=== PATIENT | male | born 1960 | race Caucasian/White ===

== ENCOUNTER 2016-07-16 17:16 | Emergency (ER) | payer BC ==
--- NOTE | 2016-07-16 20:17 | ED ---
Lower Extremity - HPI Summary HPI Summary: 56 M w/ PMH of lyme disease presents with bilateral knee pain for a week. He notices the pain in the back of the knee. He describes it as a muscle pulling sensation from the back of his thigh to his ankle. He says that it is worst when he is on his knees that he can barely stand up when he kneels. He denies any fever or history of gout. He says sometimes when he stands he feels that his knee cap is going to move out of place. He denies any locking or popping of his knee. He denies any trauma to the knees. He denies any swelling to his knees. He has been using ibuprofen for the pain. He is a smoker. He denies any recent travel, recent surgeries, family history of DVT, swelling in the calfs. - History of Current Complaint Chief Complaint: EDExtremityLower Stated Complaint: PAIN IN BOTH KNEES Time Seen by Provider: 07/16/16 19:55 Pain Intensity: 9 - Allergies/Home Medications Allergies/Adverse Reactions: Allergies Allergy/AdvReac Type Severity Reaction Status Date / Time No Known Allergies Allergy Verified 07/16/16 17:39 PMH/Surg Hx/FS Hx/Imm Hx Endocrine/Hematology History: Denies: Hx Diabetes, Hx Thyroid Disease Cardiovascular History: Reports: Hx Hypercholesterolemia, Hx Hypertension, Other Cardiovascular Problems/Disorders - history of "blacking out" Respiratory History: Reports: Hx Pneumonia Denies: Hx Asthma, Hx Chronic Obstructive Pulmonary Disease (COPD) GI History: Reports: Hx Diverticulosis, Other GI Disorders - colitis Denies: Hx Ulcer History: Denies: Hx Dialysis, Hx Renal Disease Sensory History: Reports: Hx Contacts or Glasses, Hx Deafness Opthamlomology History: Reports: Hx Contacts or Glasses Neurological History: Reports: Hx Headaches, Hx Migraine - Surgical History Surgery Procedure, Year, and Place: hernia repair more than 10 yrs ago. Hx Anesthesia Reactions: No Infectious Disease History: No Infectious Disease History: Reports: History Other Infectious Disease - Lyme's Dz Denies: Hx Hepatitis, Hx Human Immunodeficiency Virus (HIV), Traveled Outside the [place] in Last 30 Days - Family History Known Family History: Positive: Cardiac Disease, Other - no history of blood clots - Social History Alcohol Use: Occasionally Alcohol Amount: 2 Substance Use Type: Reports: None Smoking Status (MU): Heavy Every Day Tobacco Smoker Type: Cigarettes Amount Used/How Often: 1 PPD Review of Systems Negative: Fever Negative: Chest Pain Negative: Shortness Of Breath Positive: Myalgia - bilateral knee pain All Other Systems Reviewed And Are Negative: Yes Physical Exam Triage Information Reviewed: Yes Vital Signs On Initial Exam: Initial Vitals Temp Pulse Resp BP Pulse Ox 98.5 F 82 18 140/97 98 07/16/16 17:34 07/16/16 17:34 07/16/16 17:34 07/16/16 17:34 07/16/16 17:34 Vital Signs Reviewed: Yes Appearance: Positive: Well-Appearing Skin: Positive: Warm, Dry Head/Face: Positive: Normal Head/Face Inspection Eyes: Positive: Normal, Conjunctiva Clear ENT: Positive: Normal ENT inspection, Pharynx normal, TMs normal Respiratory/Lung Sounds: Positive: Clear to Auscultation, Breath Sounds Present Cardiovascular: Positive: Normal, RRR Musculoskeletal: Positive: Other - no calf tenderness, neg ballotment test, full ROM of knee with pain, no edema or erythema or warmth noted of knees, tenderness when move patella, good pulses, capillary refill <2 secs. Negative: Kaz Sign Left, Kaz Sign Right Diagnostics - Vital Signs Vital Signs Temp Pulse Resp BP Pulse Ox 07/16/16 19:08 98.5 F 67 18 139/85 97 07/16/16 18:15 99.2 F 77 16 139/97 96 07/16/16 17:34 98.5 F 82 18 140/97 98 - Laboratory Lab Statement: Any lab studies that have been ordered have been reviewed, and results considered in the medical decision making process. Lower Extremity Course/Dx - Course Course Of Treatment: 56 M presents with bilateral knee pain, pain is mostly located on the posteroir aspect of the knee and describes as pulling sensation, is nontender to posteroir asepct of knee but does have tenderness when move patella but no edema noted, does not appear to be a septic or gout joint as no erythema or edema noted, do not suspect DVT as only risk factor is smoking and neg homans sign and calf nontender and no erythema noted, xray normal except for foreign body in left leg, says that foreign body has been there for 4 years and is not tender over area and no open lesion present and can not feel through skin, advised to follow up with primary to discuss potenital removing foreign body and potential that could by lyme arthritis?, will try course of prednisone to see if improvement, patient agrees with plan - Diagnoses Differential Diagnosis/HQI/PQRI: Positive: Arthritis - lyme, DVT, Gout, Infection Provider Diagnoses: Bilateral knee pain Discharge - Discharge Plan Condition: Good Disposition: HOME Prescriptions: Methylprednisolone [Medrol Dosepak 4 MG*] 4 mg PO .SEE MANUEL INSTRUCTION #1 packet Patient Education Materials: Knee Pain (ED) Referrals: Isaias Gresham MD [Primary Care Provider] - Additional Instructions: Take steroid pack as prescribed Take Tylenol or ibuprofen every 6 hours as needed for pain Apply ice, rest, elevate Follow up with primary care physician within 5 days Return to ED if develop numbness, inability to move joint, or any new or worsening symptoms
--- NOTE | 2016-07-16 21:11 | RAD ---
INDICATION: Bilateral knee pain. TECHNIQUE: 4 views of both knees were obtained. FINDINGS: The bones are normal alignment. No joint effusion or fracture is seen. There is a small metallic foreign body which projects overlying the anterior aspect of the distal left quadriceps tendon. This is linear in shape and measures 3 mm in length. Joint spaces appear maintained. No significant arthritic change is seen IMPRESSION: THERE IS A SMALL METALLIC FOREIGN BODY IN THE SOFT TISSUES IN THE ANTERIOR LEFT KNEE.
[2016-07-16 21:55] VITALS: BP 149/92
== END 2016-07-16 21:52 | disposition home or self-care (01) ==
LOC: ED 17:16
DX: M25.562 Pain in left knee (principal); M25.561 Pain in right knee; F17.210 Nicotine dependence, cigarettes, uncomplicated; M79.5 Residual foreign body in soft tissue
CPT/HCPCS: 99282

== ENCOUNTER 2016-10-14 08:00 | Inpatient (IN) | payer BC ==
[2016-10-14] MEDS ORDERED: Aspirin Low Dose CHEW TAB* 81 MG PO ONE (08:07)
[2016-10-14] MEDS ORDERED: Nitroglycerin TAB 0.4 MG* 0.4 MG TAB SL ONE (08:15)
[2016-10-14 08:28] LABS: Hematocrit 47 % (42-52); Hemoglobin 15.4 g/dl (14.0-18.0); Mean Corpuscular HGB Conc 33 g/dl (31-36); Mean Corpuscular Hemoglobin 30 pg (27-31); Mean Corpuscular Volume 91 fL (80-94); Mean Platelet Volume 9 um3 (7.4-10.4); Red Blood Count 5.11 10^6/ul (4.0-5.4); Red Cell Distribution Width 14 % (10.5-15); White Blood Count 8.6 10^3/ul (3.5-10.8)
--- NOTE | 2016-10-14 08:35 | RAD ---
Indication: Chest pain. Cardiovascular and respiratory disease. Comparison: May 10, [address] Technique: Upright AP 0815 hours Report: Clear lungs and pleural spaces. Negative for pneumothorax. The heart, pulmonary vasculature, and mediastinal contours are unremarkable. Unremarkable osseous structures and soft tissue contours. IMPRESSION: No evidence for acute intrathoracic disease.
[2016-10-14] MEDS ORDERED: Nitroglycerin 2% OINT* 1 GM PAK TOPICAL ONE (08:39)
[2016-10-14 08:46] LABS: Albumin 4.2 g/dL (3.2-5.2); BUN/Creatinine Ratio 16.3 (8-20); Calcium 9.5 mg/dL (8.6-10.3); EGFR African American 101.4 (>60); EGFR Non-African American 78.8 (>60); Globulin 2.8 g/dL (2-4); Total Bilirubin 0.6 mg/dL (0.2-1.0)
[2016-10-14 08:48] LABS: Troponin I 0.01 ng/mL (<0.04)
[2016-10-14 11:15] LABS: HDL Cholesterol 36.6 mg/dL
[2016-10-14 11:17] LABS: Troponin I 0.03 ng/mL (<0.04)
[2016-10-14] MEDS ORDERED: Acetaminophen TAB* 325 MG PO PRN (12:59)
[2016-10-14] MEDS ORDERED: Atorvastatin* 80 MG TAB PO ONE (21:00)
[2016-10-14] MEDS: Heparin VIAL(*) 5000 UNITS/ML VIAL (FIVE THOUSAND) SUBCUT SCH (21:19)
--- NOTE | 2016-10-15 00:33 | HP ---
HISTORY AND PHYSICAL: DATE OF ADMISSION: 10/14/16 CHIEF COMPLAINT: Chest pain. HISTORY OF PRESENT ILLNESS: The patient is a 56-year-old who presents with chief complaint of chest pain that started on Friday when he was walking down after doing a job and felt sudden onset of significant chest pain in his left side that went to his left arm and his left jaw. It was 9 to 10 out of 10 in severity. It was pressure like. He could not take a breath. He had no nausea and no palpitations, but he had cold sweats. He rested in his bed for a while and then it went away. The next day he felt better. He got up. He felt was may be the coffee he had the day before that caused the problems, so he did not have it. He then mowed the lawn and put down chips around the trees and started having the same exact symptoms. Again, he rested and again the pain went away. However it recurred this morning, so he came to the ER for further evaluation. He is currently taking no medications. He apparently has a past medical history significant for hypertension, hyperlipidemia, tobacco abuse, colitis and admitted to [facility] 5 years ago. ALLERGIES: He has no known drug allergies. FAMILY HISTORY: Mother at 60. She had diabetes, heart problems. Father in his 70s of an [place] and had lung cancer. SOCIAL HISTORY: He still smokes one-half pack a day for years. Two to three beers a day. No recreational drug use. He is . He has 4 children. His Laura is his healthcare proxy. 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 REVIEW OF SYSTEMS: A 14-point review of systems was completed with the patient. All pertinent positives and negatives are in the history of present illness, otherwise it is negative. PHYSICAL EXAMINATION GENERAL: Pleasant gentleman, lying in bed, in no acute distress. VITAL SIGNS: Temperature 97.9 degrees, heart rate 60 beats per minute, respiratory rate 16 breaths per minute, pulse ox 98%, blood pressure 132/80. HEENT: Normocephalic, atraumatic. Pupils are equal, round, and reactive to light. Moist mucous membranes. NECK: Supple. No JVD, bruits, palpable thyroid, or lymphadenopathy. CHEST: Clear to auscultation and percussion bilaterally. CARDIOVASCULAR: S1, S2 appreciated. Regular rate and rhythm. No murmurs, gallops or rubs. ABDOMEN: Positive bowel sounds in all 4 quadrants. Soft, nontender, nondistended. No hepatosplenomegaly. EXTREMITIES: No cyanosis, clubbing, or edema. +2 peripheral pulse bilaterally. NEUROLOGIC: Alert and oriented x3. Moves all extremities. SKIN: No rashes or abnormalities. LABORATORY DATA/DIAGNOSTIC STUDIES: White count 8.6, hemoglobin 15.4, hematocrit 47, platelets are 234. Sodium is 136, potassium 4.0, chloride 106, CO2 of 25, BUN 16, creatinine 0.98, glucose 105. Troponin 0.01, 0.03, and 0.03. D-dimer is less than 200. Chest x-ray was interpreted by Radiology as no evidence for acute intrathoracic disease. EKG shows normal sinus rhythm at 75 beats per minute. Normal axis. Minimal ST elevations. ASSESSMENT AND PLAN: 1. Chest pain. Troponins negative. EKG not particularly impressive but his story is. We will admit patient who has ruled out for TX. Get stress echo in the morning. I have already discussed this situation with Cardiology, as my guess is the patient could have a negative stress test, but it is likely he still has significant coronary disease. They will evaluate and let me know tomorrow. 2. Tobacco abuse. The patient declines normal nicotine replacement. We will make it available if he needs it. 3. Hypertension. Apparently he has a history, but his blood pressure has been fine here. We will monitor. 4. Hyperlipidemia. Cholesterol is 286, LDL 209, HDL 36. We will start on Lipitor. 5. FEN. NPO after midnight. 6. DVT prophylaxis. Heparin subcu. 7. The patient is a full code. TIME SPENT: Over 75 minutes was spent on this H and P, more than 40 minutes of which was spent in direct [id number] contact with the patient in evaluation, physical exam, counseling, and coordination of care. CC: Dr. Gresham* [id number]/[facility] #: [id number] MTDLeandro
[2016-10-15] MEDS: Heparin VIAL(*) 5000 UNITS/ML VIAL (FIVE THOUSAND) SUBCUT SCH ×3 (05:52→21:20)
[2016-10-15] MEDS: Aspirin Low Dose CHEW TAB* 81 MG PO SCH (08:56)
[2016-10-15] MEDS ORDERED: fentaNYL* 50 MCG/ML 2 ML VIAL (100 MCG VIAL) ONE (10:47)
[2016-10-15] MEDS ORDERED: Midazolam* 1 MG/ML 5 ML VIAL (5 MG) ONE (10:48)
[2016-10-15] MEDS ORDERED: Heparin 2 UNITS/ML IVPREMIX* 3,000 ML IV ONE (10:48)
[2016-10-15] MEDS ORDERED: Iohexol 350 (CONTRAST) 200 ML MDV IV ONE (10:48)
[2016-10-15] MEDS ORDERED: Lidocaine 1% INJ* 10 MG/ML 30 ML SDV ONE ×2 (10:48→11:12)
[2016-10-15] MEDS ORDERED: Heparin 2 UNITS/ML IVPREMIX* 1,000 ML IV ONE (11:11)
[2016-10-15] MEDS ORDERED: Ticagrelor* 90 MG TAB PO ONE (11:44)
[2016-10-15] MEDS ORDERED: nitroGLYCERIN DRIP* 250 ML ONE (11:45)
[2016-10-15] MEDS ORDERED: Nitroglycerin TAB 0.4 MG* 0.4 MG TAB SL PRN (12:19)
[2016-10-15] MEDS ORDERED: Docusate CAP* 100 MG PO PRN (12:19)
[2016-10-15] MEDS ORDERED: Zolpidem TAB* 5 MG PO PRN (12:19)
[2016-10-15] MEDS ORDERED: Ondansetron INJ* 2 MG/ML VIAL IV PRN (12:19)
[2016-10-15] MEDS ORDERED: Acetaminophen TAB* 325 MG PO PRN (12:19)
[2016-10-15] MEDS ORDERED: fentaNYL* 50 MCG/ML 2 ML VIAL (100 MCG VIAL) IV PRN (12:19)
[2016-10-15] MEDS ORDERED: NS 0.9% 1000 ML* 1,000 ML IV SCH (12:30)
[2016-10-15] MEDS ORDERED: Nicotine Inhaler* 10 MG AMP INH PRN (13:47)
--- NOTE | 2016-10-15 13:49 | PN ---
Subjective Date of Service: 10/15/16 Interval History: Pt was seen after cardiac cath. Offers no complaints. Had CP on treadmill , during stress test. Objective Active Medications: Acetaminophen (Tylenol Tab*) 650 mg PO Q4H PRN PRN Reason: HEADACHE/PAIN Aspirin (Aspirin Low Dose Tab*) 81 mg PO DAILY [facility] Last Admin: 10/15/16 08:56 Dose: 81 mg Atorvastatin Calcium (Lipitor*) 80 mg PO 2100 [facility] Stop: 10/21/16 20:59 Docusate Sodium (Colace Cap*) 100 mg PO DAILY PRN PRN Reason: CONSTIPATION Fentanyl Citrate (Fentanyl*) 25 mcg IV Q2H PRN PRN Reason: PAIN Heparin Sodium (Porcine) (Heparin Vial(*)) 5,000 units SUBCUT Q8HR [facility] Last Admin: 10/15/16 05:52 Dose: Not Given Nitroglycerin (Nitroglycerin Tab 0.4 Mg*) 0.4 mg SL Q5M PRN PRN Reason: ANGINA Ondansetron HCl (Zofran Inj*) 4 mg IV Q4H PRN PRN Reason: NAUSEA Oxycodone/Acetaminophen (Percocet 5/325 Tab*) 1 tab PO Q6H PRN PRN Reason: PAIN Ticagrelor (Brilinta*) 90 mg PO BID [facility] Zolpidem Tartrate (Ambien Tab*) 5 mg PO BEDTIME PRN PRN Reason: INSOMNIA Vital Signs 10/14/16 10/14/16 10/14/16 15:17 15:52 19:43 Temperature 98.2 F 98.2 F Pulse Rate 61 60 Respiratory 18 18 Rate Blood Pressure 124/78 126/83 (mmHg) O2 Sat by Pulse 95 94 Oximetry 10/15/16 10/15/16 10/15/16 00:07 04:14 07:55 Temperature 97.5 F 97.6 F 97.5 F Pulse Rate 54 67 57 Respiratory 16 16 16 Rate Blood Pressure 128/87 128/82 128/84 (mmHg) O2 Sat by Pulse 95 93 96 Oximetry Oxygen Devices in Use Now: None Appearance: 56 yo M in nAd, aAOx3 Eyes: No Scleral Icterus, PERRLA Ears/Nose/Mouth/Throat: NL Teeth, Lips, Gums, Mucous Membranes Moist Neck: NL Appearance and Movements; NL JVP, Trachea Midline Respiratory: Symmetrical Chest Expansion and Respiratory Effort, Clear to Auscultation Cardiovascular: NL Sounds; No Murmurs; No JVD, RRR Abdominal: NL Sounds; No Tenderness; No Distention, No Hepatosplenomegaly Lymphatic: No Cervical Adenopathy Extremities: No Edema, No Clubbing, Cyanosis Skin: No Rash or Ulcers, No Nodules or Sclerosis, - - r groin with pressure dressing in place Neurological: Alert and Oriented x 3, NL Muscle Strength and Tone Result Diagrams: 10/14/16 08:10 10/14/16 08:10 Assess/Plan/Problems-Billing Assessment: 56 yo M with h/o smoking presents with exertional angina, s/p cath , stent to LAD - Patient Problems (1) Exercise-induced angina Comment: pt had CP on treadmill cath + stent in LAD on 10/15/[address] Murry cont ANGIE/Renan (2) Smoking Comment: nicotine inhaler ordered (3) Dyslipidemia Comment: LDL>200, Lipitor started (4) DVT prophylaxis Comment: heparin sc Status and Disposition: OBV will be changed to inpatient
--- NOTE | 2016-10-15 15:21 | CONS ---
CARDIOLOGY CONSULTATION: DATE OF CONSULT: 10/15/16 INDICATION FOR CONSULTATION: Chest pain, abnormal stress test. HISTORY OF PRESENT ILLNESS: The patient is a 56-year-old gentleman with a history of smoking who came to the emergency room because of chest pain. The patient states that over the weekend he had multiple episodes of chest pain, he describes that as a crushing pain in the center of the chest radiating up to his jaw. At one point, he rated it as a 9/10 in severity. Ultimately, he came to the emergency room. In the emergency room, his initial EKG showed normal sinus rhythm with nonspecific T-wave abnormalities. The patient was admitted to the hospital. His initial 3 troponins were unremarkable. This morning, the patient underwent an exercise stress echocardiogram. His baseline echocardiogram showed normal LV size and systolic function. The patient exercised for 5 minutes and 22 seconds. He had crushing chest pain radiating into his arm and jaw. He had no blatant EKG changes. However, his echocardiogram showed severe hypokinesis to his distal anterior wall and apex consistent with possible LAD stenosis. The patient's chest pain resolved with rest. PAST MEDICAL HISTORY: Unremarkable. OUTPATIENT MEDICATIONS: None. HOSPITALIZATIONS: None. ALLERGIES: None. FAMILY HISTORY: Mother at 60 of diabetes and heart troubles. Father in his 70s of a myocardial infarction. SOCIAL HISTORY: He does smoke half a pack of cigarettes a day, 1 to 2 beers a day. He is . He has 4 children. 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 REVIEW OF SYSTEMS: Unremarkable. PHYSICAL EXAM: Height is 5 feet 9 inches, weight is 181 pounds, temperature is 97.5, heart rate is 66, blood pressure 128/84, oxygen saturation 96% on room air. Sclerae anicteric. Oropharynx is pink without erythema. Carotids are 2+ without bruits. JVD is normal. Thyroid is normal. Cardiac Exam: S1, S2 without any murmurs, rubs or gallops. Lungs are clear to auscultation. Extremities showed no edema. He has 2+ pulses throughout. The patient is awake and alert and oriented. He moves all 4 extremities equally. DIAGNOSTIC STUDIES/LAB DATA: CBC within normal limits. Chemistries within normal limits. Total cholesterol 186, LDL cholesterol 209. IMPRESSION: This is a 56-year-old gentleman with a history of smoking who is admitted to the hospital with classic anginal type symptoms. The patient underwent a stress test which showed a large area of ischemia to his distal anterior wall and apex. The patient is already on an aspirin a day. The patient will undergo cardiac catheterization. He will be started on statin therapy and beta blockers. I will see the patient in followup as an outpatient. [id number]/[facility] #: [id number] MTDD
[2016-10-15] MEDS: oxyCODONE/Acetamin 5/325 MG* TAB PO PRN ×2 (16:15→23:28)
[2016-10-15] MEDS ORDERED: Atorvastatin* 80 MG TAB PO SCH (21:00)
[2016-10-15] MEDS: Ticagrelor* 90 MG TAB PO SCH (21:20)
--- NOTE | 2016-10-15 23:18 | CATH ---
CARDIAC CATHETERIZATION REPORT: DATE OF STUDY: 10/15/16 - ROOM #ICU-03 PROCEDURE: Cardiac catheterization including left ventriculogram, left heart catheterization, coronary angiography. INDICATION: Acute coronary syndrome, abnormal stress test. HISTORY: The patient is a 56-year-old gentleman with a history of smoking, who was admitted to the hospital with typical anginal type symptoms. The patient had just undergone a stress echocardiogram, which was markedly positive for ischemia to his anterior wall. Cardiac catheterization was recommended. DESCRIPTION OF PROCEDURE: The patient was brought to the cardiac catheterization lab in a fasting state. Informed consent had been obtained prior to the procedure. All labs were reviewed. The patient was placed supine on the catheterization table. Both femoral areas were cleaned and draped in the usual fashion. 1% lidocaine was used for local anesthesia. The right femoral artery was entered by a modified Seldinger technique and a 6-Maltese sheath introducer was placed. The patient underwent left ventriculogram, coronary angiography using a 6-Maltese pigtail catheter, 6-Maltese JL4 catheter, 6 -Maltese JR4 catheter. At the end of the procedure, the patient went on to angioplasty and stenting of his left anterior descending artery. Please see Dr. Murry's note for those details. FINDINGS: HEMODYNAMICS: Central aortic pressure 120/76 with a mean of 94. Left ventricular pressure of 120/6 with an end-diastolic pressure of 9. LEFT VENTRICULOGRAM: Left ventricle is normal in size and systolic function. Estimated ejection fraction is 60%. There are no focal wall motion abnormalities. There is no mitral regurgitation. Aortic valve and ascending aorta are normal. CORONARY ARTERIES: Left main: The left main was normal in size. It trifurcated into the LAD, ramus artery and circumflex artery. There was no evidence of stenosis. Left anterior descending artery: The LAD was normal in size. It gave off 2 diagonal vessels. There was a 90% stenosis of the proximal LAD. The remainder of the vessel was without disease. The diagonal vessels were small vessels. Ramus artery: The ramus artery was a moderate size vessel without disease. Left circumflex artery: The circumflex artery was normal in size. It gave off one obtuse marginal branch. There was no evidence of stenosis. Right coronary artery: The RCA was a large dominant vessel. It gave off the PDA and large posterolateral branch. There was no evidence of stenosis. IMPRESSION: 1. Normal LV size and systolic function. 2. 90% stenosis of the proximal left anterior descending artery. RECOMMENDATION: The patient will undergo angioplasty and stenting of his LAD. [id number]/[facility] #: [id number] [facility] CENTERLeandro
--- NOTE | 2016-10-16 00:08 | CATH ---
INTERVENTIONAL REPORT: DATE OF PROCEDURE: 10/15/16 - ROOM #ICU-03 INDICATION FOR PROCEDURE: Asked by Dr. Joshua who performed intervention into critical 90% mid LAD lesion with the patient with significant positive stress test by echocardiography showing segmental wall motion development with exercise. PROCEDURE: Primary stenting of the mid LAD with placement of a 3.5 x 16 mm long Synergy stent, post dilated to 3.6 to 3.7 mm and closure of arterial site with a Mynx closure device. DESCRIPTION OF PROCEDURE: The patient was already prepped and draped by Dr. Joshua, who performed the diagnostic catheterization and will report it in a separate report. The patient already had an existing 6-Angolan sheath in place. I met with the patient in the logging rafter laborer and explained to him the procedure we are going to do. He understood that and understood the risks and benefits. He wished to proceed. Guiding views were obtained utilizing a 6-Angolan VL 3.5 curved left coronary guide catheter. The patient received Brilinta 180 mg orally and an Angiomax bolus and Angiomax drip was started. An 0.014 All Star wire was advanced down the left anterior descending artery and primary stenting was performed utilizing the 3.5 x 16 mm long Synergy stent. Post deployment dilatations were made utilizing a 3.5 x 8 mm long NC Emerge balloon dilated to high pressures to obtain 3.6 to 3.7 mm. Following this, the artery was assessed in two views. RESULTS: Successful reduction of critical 90% stenosis with residual stenosis of 5%, LINETTE-3 flow, no dissection seen. Just past the point of the stent, is an area of 20% narrowing. Of note, proximal to the stent placement is an area of prestenotic dilatation that was seen. The patient should be maintained on dual antiplatelet therapy for a minimum of 1 year's time and aspirin for life. This was discussed with Dr. Magdaleno Joshua, who is the patient's primary speeder worker. The patient is on high-dose atorvastatin therapy as well. Postprocedure wound followup will be through Dr. Joshua, his primary speeder worker, as well. CC: Dr. Magdaleno Joshua; Dr. Isaias Gresham * [id number]/[facility] #: [id number] MTDD
[2016-10-16 06:15] LABS: Hematocrit 46 % (42-52); Hemoglobin 15.3 g/dl (14.0-18.0); Mean Corpuscular HGB Conc 34 g/dl (31-36); Mean Corpuscular Hemoglobin 31 pg (27-31); Mean Corpuscular Volume 91 fL (80-94); Mean Platelet Volume 9 um3 (7.4-10.4); Red Blood Count 5.02 10^6/ul (4.0-5.4); Red Cell Distribution Width 14 % (10.5-15); White Blood Count 10.5 10^3/ul (3.5-10.8)
[2016-10-16 06:34] LABS: BUN/Creatinine Ratio 25.3 (8-20); Calcium 9.4 mg/dL (8.6-10.3); EGFR African American 105.1 (>60); EGFR Non-African American 81.7 (>60); HDL Cholesterol 30.7 mg/dL
[2016-10-16] MEDS: Heparin VIAL(*) 5000 UNITS/ML VIAL (FIVE THOUSAND) SUBCUT SCH ×2 (06:40→14:06)
--- NOTE | 2016-10-16 08:02 | PN ---
Subjective Date of Service: 10/16/16 Interval History: Pt feels well, no more CP. HR down to 40's when asleep Objective Active Medications: Acetaminophen (Tylenol Tab*) 650 mg PO Q4H PRN PRN Reason: HEADACHE/PAIN Aspirin (Aspirin Low Dose Tab*) 81 mg PO DAILY [facility] Last Admin: 10/15/16 08:56 Dose: 81 mg Atorvastatin Calcium (Lipitor*) 80 mg PO 2100 [facility] Stop: 10/21/16 20:59 Last Admin: 10/15/16 21:20 Dose: 80 mg Docusate Sodium (Colace Cap*) 100 mg PO DAILY PRN PRN Reason: CONSTIPATION Heparin Sodium (Porcine) (Heparin Vial(*)) 5,000 units SUBCUT Q8HR [facility] Last Admin: 10/16/16 06:40 Dose: 5,000 units Nicotine (Nicotine Inhaler*) 10 mg INH Q2H PRN PRN Reason: CRAVING Nitroglycerin (Nitroglycerin Tab 0.4 Mg*) 0.4 mg SL Q5M PRN PRN Reason: ANGINA Ondansetron HCl (Zofran Inj*) 4 mg IV Q4H PRN PRN Reason: NAUSEA Oxycodone/Acetaminophen (Percocet 5/325 Tab*) 1 tab PO Q6H PRN PRN Reason: PAIN Last Admin: 10/15/16 23:28 Dose: 1 tab Ticagrelor (Brilinta*) 90 mg PO BID [facility] Last Admin: 10/15/16 21:20 Dose: 90 mg Zolpidem Tartrate (Ambien Tab*) 5 mg PO BEDTIME PRN PRN Reason: INSOMNIA Last Admin: 10/15/16 21:35 Dose: 5 mg Vital Signs 10/15/16 10/15/16 10/15/16 14:00 14:15 14:30 Temperature Pulse Rate 56 69 79 Respiratory 13 15 16 Rate Blood Pressure 155/93 129/99 142/94 (mmHg) O2 Sat by Pulse 99 98 98 Oximetry 10/15/16 10/15/16 10/15/16 14:45 15:00 15:15 Temperature Pulse Rate 80 69 64 Respiratory 14 12 11 Rate Blood Pressure 128/94 123/89 130/89 (mmHg) O2 Sat by Pulse 99 98 99 Oximetry 10/15/16 10/15/16 10/15/16 15:30 15:45 16:00 Temperature 97.8 F Pulse Rate 67 65 67 Respiratory 11 11 12 Rate Blood Pressure 130/75 119/98 122/81 (mmHg) O2 Sat by Pulse 99 99 98 Oximetry 10/15/16 10/15/16 10/15/16 16:15 16:30 16:45 Temperature Pulse Rate 83 69 63 Respiratory 13 14 15 Rate Blood Pressure 141/82 138/82 130/73 (mmHg) O2 Sat by Pulse 97 98 98 Oximetry 10/15/16 10/15/16 10/15/16 17:00 17:15 17:30 Temperature Pulse Rate 62 62 61 Respiratory 14 15 13 Rate Blood Pressure 138/76 130/81 118/91 (mmHg) O2 Sat by Pulse 97 97 97 Oximetry 10/15/16 10/15/16 10/15/16 17:45 18:00 18:15 Temperature Pulse Rate 60 74 65 Respiratory 13 15 17 Rate Blood Pressure 113/79 127/88 123/74 (mmHg) O2 Sat by Pulse 96 96 96 Oximetry 10/15/16 10/15/16 10/15/16 18:30 18:45 19:00 Temperature Pulse Rate 61 71 64 Respiratory 16 13 18 Rate Blood Pressure 117/71 138/123 128/76 (mmHg) O2 Sat by Pulse 97 95 96 Oximetry 10/15/16 10/15/16 10/15/16 19:15 19:30 19:41 Temperature Pulse Rate 65 64 Respiratory 14 15 18 Rate Blood Pressure 123/78 119/80 (mmHg) O2 Sat by Pulse 96 98 Oximetry 10/15/16 10/15/16 10/15/16 19:45 20:00 20:15 Temperature 97.5 F Pulse Rate 67 57 59 Respiratory 16 18 16 Rate Blood Pressure 131/76 115/77 127/76 (mmHg) O2 Sat by Pulse 96 96 95 Oximetry 10/15/16 10/15/16 10/15/16 20:30 20:45 21:00 Temperature Pulse Rate 57 53 62 Respiratory 14 16 18 Rate Blood Pressure 121/79 115/79 155/81 (mmHg) O2 Sat by Pulse 96 96 97 Oximetry 10/15/16 10/15/16 10/15/16 21:30 21:45 22:00 Temperature Pulse Rate 59 71 62 Respiratory 19 25 17 Rate Blood Pressure 135/84 143/75 132/85 (mmHg) O2 Sat by Pulse 95 97 95 Oximetry 10/15/16 10/15/16 10/15/16 22:15 22:30 22:36 Temperature Pulse Rate 60 58 59 Respiratory 13 12 13 Rate Blood Pressure 128/79 119/81 (mmHg) O2 Sat by Pulse 94 95 95 Oximetry 10/15/16 10/15/16 10/15/16 22:45 23:00 23:15 Temperature Pulse Rate 59 71 57 Respiratory 11 18 11 Rate Blood Pressure 111/74 141/81 132/76 (mmHg) O2 Sat by Pulse 96 96 97 Oximetry 10/15/16 10/15/16 10/15/16 23:28 23:30 23:31 Temperature 97.7 F Pulse Rate 59 Respiratory 16 16 Rate Blood Pressure 135/84 (mmHg) O2 Sat by Pulse 96 Oximetry 10/15/16 10/16/16 10/16/16 23:45 00:00 00:01 Temperature Pulse Rate 57 55 56 Respiratory 11 11 9 Rate Blood Pressure 115/73 125/79 (mmHg) O2 Sat by Pulse 97 96 96 Oximetry 10/16/16 10/16/16 10/16/16 00:15 00:30 00:45 Temperature Pulse Rate 56 56 56 Respiratory 13 11 13 Rate Blood Pressure 117/74 112/82 109/81 (mmHg) O2 Sat by Pulse 96 98 96 Oximetry 10/16/16 10/16/16 10/16/16 01:00 01:15 01:30 Temperature Pulse Rate 55 57 53 Respiratory 14 7 11 Rate Blood Pressure 118/75 100/75 115/70 (mmHg) O2 Sat by Pulse 97 96 96 Oximetry 10/16/16 10/16/16 10/16/16 01:45 02:00 02:15 Temperature Pulse Rate 55 54 53 Respiratory 14 11 12 Rate Blood Pressure 110/73 98/75 119/75 (mmHg) O2 Sat by Pulse 96 96 97 Oximetry 10/16/16 10/16/16 10/16/16 02:30 02:45 03:00 Temperature Pulse Rate 51 54 52 Respiratory 11 15 12 Rate Blood Pressure 103/71 115/79 122/70 (mmHg) O2 Sat by Pulse 96 96 95 Oximetry 10/16/16 10/16/16 10/16/16 03:15 03:30 03:45 Temperature Pulse Rate 53 51 55 Respiratory 10 10 13 Rate Blood Pressure 125/83 109/76 132/80 (mmHg) O2 Sat by Pulse 96 95 96 Oximetry 10/16/16 10/16/16 10/16/16 04:00 04:15 04:30 Temperature 98.7 F Pulse Rate 55 52 51 Respiratory 10 12 11 Rate Blood Pressure 127/78 127/79 134/80 (mmHg) O2 Sat by Pulse 96 95 97 Oximetry 10/16/16 10/16/16 10/16/16 04:45 05:00 05:15 Temperature Pulse Rate 52 52 63 Respiratory 12 10 19 Rate Blood Pressure 116/82 116/86 127/80 (mmHg) O2 Sat by Pulse 94 96 96 Oximetry 10/16/16 10/16/16 10/16/16 05:30 05:45 06:00 Temperature Pulse Rate 56 53 52 Respiratory 16 11 12 Rate Blood Pressure 118/88 116/70 129/82 (mmHg) O2 Sat by Pulse 95 95 96 Oximetry 10/16/16 10/16/16 06:15 06:30 Temperature Pulse Rate 52 51 Respiratory 12 10 Rate Blood Pressure 141/96 121/86 (mmHg) O2 Sat by Pulse 97 97 Oximetry Oxygen Devices in Use Now: Nasal Cannula - at 2L, 02 sat 96% Appearance: 56 yo M in nAd, aAOx3 Eyes: No Scleral Icterus, PERRLA Ears/Nose/Mouth/Throat: NL Teeth, Lips, Gums, Mucous Membranes Moist Neck: NL Appearance and Movements; NL JVP, Trachea Midline Respiratory: Symmetrical Chest Expansion and Respiratory Effort, Clear to Auscultation Cardiovascular: NL Sounds; No Murmurs; No JVD, No Edema Abdominal: NL Sounds; No Tenderness; No Distention, No Hepatosplenomegaly Lymphatic: No Cervical Adenopathy Extremities: No Edema, No Clubbing, Cyanosis Skin: No Rash or Ulcers, No Nodules or Sclerosis, - - R groin puncture site area , tender to palpation, no significant hmetoma noted Neurological: Alert and Oriented x 3, NL Muscle Strength and Tone Result Diagrams: 10/16/16 06:00 10/16/16 06:00 Assess/Plan/Problems-Billing Assessment: 56 yo M with h/o smoking presents with exertional angina, s/p cath , stent to LAD - Patient Problems (1) Exercise-induced angina Comment: pt had CP on treadmill cath + stent in LAD on 10/15/[address] Murry cont ASA/Brilinta Ambulate today, then d/c home in PM no beta blockers due to bradycardia (2) Smoking Comment: nicotine inhaler ordered Counseled x 3 min on 10/16/16 (3) Dyslipidemia Comment: LDL>200, Lipitor started (4) DVT prophylaxis Comment: heparin sc Status and Disposition: inpatient, d/c planned for PM
[2016-10-16] MEDS: Aspirin Low Dose CHEW TAB* 81 MG PO SCH (08:36)
[2016-10-16] MEDS: Ticagrelor* 90 MG TAB PO SCH (08:37)
--- NOTE | 2016-10-16 12:18 | PN ---
Subjective Date of Service: 10/16/16 - CC: SOB Interval History: The patient was SOB lying flat yesterday, better today and walking well. Groin is very sore. No recurrence of CP, neck or arm pain. Medications Active Medications: Acetaminophen (Tylenol Tab*) 650 mg PO Q4H PRN PRN Reason: HEADACHE/PAIN Aspirin (Aspirin Low Dose Tab*) 81 mg PO DAILY [facility]PLAC[facility] BY [facility] Last Admin: 10/16/16 08:36 Dose: 81 mg Atorvastatin Calcium (Lipitor*) 80 mg PO 2100 [facility]PL[facility] Stop: 10/21/16 20:59 Last Admin: 10/15/16 21:20 Dose: 80 mg Docusate Sodium (Colace Cap*) 100 mg PO DAILY PRN PRN Reason: CONSTIPATION Heparin Sodium (Porcine) (Heparin Vial(*)) 5,000 units SUBCUT Q8HR [facility]PLACED BY [facility] Last Admin: 10/16/16 06:40 Dose: 5,000 units Lisinopril (Prinivil Tab*) 2.5 mg PO DAILY [facility]PLAC[facility] BY [facility] Nicotine (Nicotine Inhaler*) 10 mg INH Q2H PRN PRN Reason: CRAVING Nitroglycerin (Nitroglycerin Tab 0.4 Mg*) 0.4 mg SL Q5M PRN PRN Reason: ANGINA Ondansetron HCl (Zofran Inj*) 4 mg IV Q4H PRN PRN Reason: NAUSEA Oxycodone/Acetaminophen (Percocet 5/325 Tab*) 1 tab PO Q6H PRN PRN Reason: PAIN Last Admin: 10/15/16 23:28 Dose: 1 tab Ticagrelor (Brilinta*) 90 mg PO BID [facility]PL[facility] Last Admin: 10/16/16 08:37 Dose: 90 mg Zolpidem Tartrate (Ambien Tab*) 5 mg PO BEDTIME PRN PRN Reason: INSOMNIA Last Admin: 10/15/16 21:35 Dose: 5 mg Objective Vital Signs: Temp Pulse Resp BP Pulse Ox 98.8 F 69 16 136/77 92 10/16/16 08:00 10/16/16 12:06 10/16/16 12:00 10/16/16 12:06 10/16/16 12:06 Oxygen Devices in Use Now: None - at 2L, 02 sat 96% Appearance: Middleaged male lying at 20 degrees, appears anxious but in no medical distress. Eyes: No Scleral Icterus, PERRLA Ears/Nose/Mouth/Throat: Clear Oropharnyx, Mucous Membranes Moist Neck: NL Appearance and Movements; NL JVP, Trachea Midline, No Thyroid Enlargement, Masses Respiratory: Symmetrical Chest Expansion and Respiratory Effort, Clear to Auscultation Cardiovascular: NL Sounds; No Murmurs; No JVD, RRR Abdominal: NL Sounds; No Tenderness; No Distention, No Hepatosplenomegaly Extremities: No Edema - femoral access site R groin very tender, but no hematoma , no ecchymosis, 2+ PTP left, 1+PTP right. Skin: No Rash or Ulcers Neurological: Alert and Oriented x 3, NL Muscle Strength and Tone Lines/Tubes/Other Access: Clean, Dry and Intact Peripheral IV Laboratory Results: 10/16/16 06:00 10/16/16 06:00 Total Bilirubin 0.60 mg/dL (0.2-1.0) 10/14/16 08:10 AST 14 U/L (13-39) 10/14/16 08:10 ALT 21 U/L (7-52) 10/14/16 08:10 Alkaline Phosphatase 52 U/L (34-104) 10/14/16 08:10 Total Protein 7.0 g/dL (6.4-8.9) 10/14/16 08:10 Albumin 4.2 g/dL (3.2-5.2) 10/14/16 08:10 Globulin 2.8 g/dL (2-4) 10/14/16 08:10 Albumin/Globulin Ratio 1.5 (1-3) 10/14/16 08:10 Triglycerides 183 mg/dL 10/16/16 06:00 Cholesterol 265 mg/dL 10/16/16 06:00 LDL Cholesterol 198 mg/dL 10/16/16 06:00 HDL Cholesterol 30.7 mg/dL 10/16/16 06:00 Diagnostic Imaging: Cath: 90% LAD lesion to CAR, other C's w/o disease. Assessment/Plan 56 yo smoker with markedly elevated LDL cholesterol s/p ACS and stent to tight LAD lesion now angina freee. Points of Discussion: CAD: Stable s/p stent. CAD risks: Smoking cessation discussed, he sounds committed to quitting now. Agree with high dose atorvastatin. Consider low dose ACEI to start today. Post Cath: groin check with Dr Joshua or Dr. Murry next week. No work until groin check, prn pain meds OK. SOB: Likely related to Brillinta and smoking, O2 sats good, lung exam is normal. OK to discharge on Brillinta and ASA.
[2016-10-16] MEDS ORDERED: Lisinopril TAB* 5 MG PO SCH (13:00)
[2016-10-16 14:07] VITALS: BP 123/101
--- NOTE | 2016-10-16 18:23 | ED ---
Oralia Campbell Matthew, scribed for Ha Watson MD on 10/14/16 at 0837 . HPI Chest Pain - HPI Summary HPI Summary: A 56 y/o male presents to the ED with chest pain since a week ago, which worsened on 10/12. The pain radiates into the left arm and up the neck. The pain is worse with exertion including ambulation, and with deep breaths only on the left side. Associated symptoms include SOB and dry cough. The patient denies chest pain currently and recent travel. He initially thought it was indigestion , because he had drank more coffee than usually on 10/12; however the pain radiate up the neck, which was new. Currently, the patient is feeling better and the chest pain has resolved, but he continues to have left arm pain rated 2/ 10 in severity. The patient has not taken aspirin [employer]. PMHx of HTN. No HLD, DVT , or Diabetes. FHx of NE (Father and Mother in their 60s). 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 No stents. - History of Current Complaint Chief Complaint: EDChestPainROMI Hx Obtained From: Patient Onset/Duration: Started Days Ago, Atraumatic, Still Present Initial Severity: Moderate Current Severity: Moderate Pain Intensity: 5 Pain Scale Used: 0-10 Numeric Chest Pain Radiates: Yes Chest Pain Radiates To:: Arm - LT, Jaw - LT, Neck - LT Aggravating Factor(s): Exertion Alleviating Factor(s): Nothing Associated Signs and Symptoms: Positive: Chest Pain - since resolved, Shortness of Breath, Nonproductive Cough - Additional Pertinent History Primary Care Physician: [id number] - Allergy/Home Medications Allergies/Adverse Reactions: Allergies Allergy/AdvReac Type Severity Reaction Status Date / Time No Known Allergies Allergy Verified 10/14/16 08:05 PMH/Surg Hx/FS Hx/Imm Hx Endocrine/Hematology History: Denies: Hx Diabetes, Hx Thyroid Disease Cardiovascular History: Reports: Hx Hypercholesterolemia, Hx Hypertension, Other Cardiovascular Problems/Disorders - history of "blacking out" Respiratory History: Reports: Hx Pneumonia Denies: Hx Asthma, Hx Chronic Obstructive Pulmonary Disease (COPD) GI History: Reports: Hx Diverticulosis, Other GI Disorders - colitis Denies: Hx Ulcer History: Denies: Hx Dialysis, Hx Renal Disease Sensory History: Reports: Hx Contacts or Glasses, Hx Deafness Opthamlomology History: Reports: Hx Contacts or Glasses Neurological History: Reports: Hx Headaches, Hx Migraine - Surgical History Surgery Procedure, Year, and Place: hernia repair more than 10 yrs ago. Hx Anesthesia Reactions: No Infectious Disease History: No Infectious Disease History: Reports: History Other Infectious Disease - Lyme's Dz Denies: Hx Hepatitis, Hx Human Immunodeficiency Virus (HIV), Traveled Outside the [place] in Last 30 Days - Family History Known Family History: Positive: Cardiac Disease, Other - no history of blood clots - Social History Alcohol Use: Occasionally Alcohol Amount: 2 Substance Use Type: Reports: None Smoking Status (MU): Heavy Every Day Tobacco Smoker Type: Cigarettes Amount Used/How Often: 1 PPD Review of Systems Constitutional: Negative Negative: Fever, Chills, Skin Diaphoresis Eyes: Negative Negative: Erythema ENT: Negative Negative: Sore Throat Positive: Chest Pain - since resolved Positive: Shortness Of Breath Gastrointestinal: Negative Negative: Abdominal Pain, Vomiting, Diarrhea, Nausea Genitourinary: Negative Negative: dysuria, hematuria Positive: Myalgia - left arm and jaw pain Skin: Negative Negative: Rash Neurological: Negative Negative: Headache Psychological: Normal All Other Systems Reviewed And Are Negative: Yes Physical Exam Triage Information Reviewed: Yes Vital Signs On Initial Exam: Initial Vitals Temp Pulse Resp BP Pulse Ox 97.7 F 72 21 155/93 97 10/14/16 08:05 10/14/16 08:05 10/14/16 08:05 10/14/16 08:05 10/14/16 08:05 Vital Signs Reviewed: Yes Appearance: Positive: Well-Appearing, No Pain Distress Skin: Positive: Warm, Dry Head/Face: Positive: Other - Normocephalic; Atraumatic Eyes: Positive: Conjunctiva Clear ENT: Positive: Normal ENT inspection Neck: Positive: No Lymphadenopathy, Other: - Full ROM; No JVD Respiratory/Lung Sounds: Positive: Other - Normal Effort; No respiratory distress. Negative: Rales, Rhonchi, Stridor, Tracheal Deviation, Wheezes Cardiovascular: Positive: RRR, Other - Rhythm regular, rate normal, Heart sounds normal; Intact distal pulses; The pedal pulses are 2+ and symmetric. Radial pulses are 2+ and symmetric. Negative: Murmur Abdomen Description: Positive: Nontender, Soft, Other: - No Rebound. Negative: Distended, Guarding Bowel Sounds: Positive: Present Musculoskeletal: Negative: Edema Left, Edema Right Neurological: Positive: Alert, Oriented to Person Place, Time Psychiatric: Positive: Affect/Mood Appropriate Diagnostics - Vital Signs Vital Signs Temp Pulse Resp BP Pulse Ox 10/14/16 08:05 97.7 F 72 21 155/93 97 - Laboratory Result Diagrams: 10/14/16 08:10 10/14/16 08:10 Lab Statement: Any lab studies that have been ordered have been reviewed, and results considered in the medical decision making process. - Radiology CXR Xray Interpretation: No Acute Changes - IMPRESSION: No evidence for acute intrathoracic disease. Radiology Interpretation Completed By: Radiologist - EKG 08:06 Cardiac Rate: NL - 75 bpm EKG Rhythm: Sinus Rhythm EKG Interpretation: No STEMI Chest Pain Course/Dx - Course Assessment/Plan: A 56 y/o male presents to the ED with chest pain since a week ago, which worsened on 10/12. The pain radiates into the left arm and up the neck. The pain is worse with exertion including ambulation, and with deep breaths only on the left side. Associated symptoms include SOB and dry cough. The patient denies chest pain currently and recent travel. Labs were reviewed and troponin of 0.01 and troponin 2 of 0.03. CXR shows no evidence for acute intrathoracic disease. EKG shows NSR at 75 bpm with NO STEMI. Discussed the case with Dr. Henderson who will admit the patient for observation. - Diagnoses Provider Diagnoses: angina - Provider Notifications Discussed Care Of Patient With: Dr. Henderson (Hospitalist) at 09:20 -- Notified of patient's history and will admit the patient into his services. Discharge - Discharge Plan Condition: Stable Disposition: ADMITTED TO [facility] documentation as recorded by the Oralia alejandre Matthew accurately reflects the service I personally performed and the decisions made by , Ha Watson MD.
--- NOTE | 2016-10-16 21:57 | DS ---
DISCHARGE SUMMARY: DATE OF ADMISSION: 10/14/16 DATE OF DISCHARGE: 10/16/16 PRIMARY CARE PROVIDER: Isaias Gresham MD DISCHARGE DIAGNOSIS: Angina, chest pain, status post cardiac catheterization on 10/15/16 and LAD stent placement by Dr. Murry. SECONDARY DIAGNOSIS: Tobacco abuse. MEDICATIONS AT DISCHARGE: Include: 1. Aspirin 81 mg daily. 2. Brilinta 90 mg b.i.d. 3. Lisinopril 2.5 mg daily. 4. Lipitor 80 mg daily. LABORATORY DATA AND STUDIES PERFORMED DURING THE HOSPITAL STAY: Included: On 10/15/16, white blood cell count of 10.5, hemoglobin of 13.3, hematocrit of 46, and platelets of 217. Sodium was 132, potassium 4.0, chloride 104, carbon dioxide 24, BUN 24, creatinine 0.95. Liver function tests were unremarkable at admission. Troponin peaked at 0.03. Triglycerides of 183, cholesterol total of 265, LDL of 198, and HDL of 30. Cardiac catheterization initially performed by Dr. Joshua show 90% stenosis of proximal LAD, EF of 60%. Dr. Murry performed an intervention on the LAD on the same day, which is 10/15/16, and placed the drug-eluting stent to the LAD. CONSULTATIONS DURING THE HOSPITAL STAY: Included Dr. Joshua from Cardiology; Dr. Murry from Interventional Cardiology. HOSPITALIZATION COURSE: Dave Mcdermott is a 56-year-old male with a history of smoking and remotely hypertension presented to the hospital complaining with 3 days of exertional chest pain. The patient was placed on overnight observation. His troponins continued to be negative. He was placed on a treadmill for stress echocardiogram and developed chest paint that worsened with exertion. He was directed for cardiac catheterization right after the cardiac stress test. Dr. Joshua initiated cardiac catheterization, which showed 90% stenosis of the proximal LAD and Dr. Murry, the interventionalist, placed a stent into the area. Subsequently, the patient was placed in intensive care unit for overnight monitoring. He did very well and prior to discharge, he was ambulating without complaints of chest pain. The patient was placed on dual antiplatelet therapy, which included after aspirin and Brilinta. After Dr. Iniguez saw the patient for followup Cardiology consultation just prior to discharge, she recommended low-dose JOANN inhibitor, which was provided. The patient also was noted to have marked dyslipidemia with elevation of LDL as above-mentioned and high-dose statin was also ordered. Prior to the patient's discharge, he was recommended to continue aspirin and Brilinta and to come to the emergency room or [facility] if he runs out of Brilinta at any point. He was also dispensed a 30-day supply of Brilinta from our pharmacy. After discharge, the patient is recommended to follow up with his primary care provider in 4 to 7 days. The patient also has scheduled appointment with Dr. Joshua on 10/22/16 for Cardiology and cardiac catheterization. At discharge, the patient's right groin is tender to palpation, but there is no evidence of marked hematoma. The punctured wound site care was included in post cardiac catheterization discharge instructions. Remaining physical exam was included in daily progress notes. At discharge, the patient was also strongly recommended smoking cessation, which he agreed to. Please note this is a short summary of the patient's hospital stay. Please refer to further medical records for details. TIME SPENT: Approximately 40 minutes were spent on the patient's discharge. CC: Dr. Gresham; Magdaleno Joshua MD; Kory Murry MD; Katiuska Iniguez MD * [id number]/[facility] #: [id number] MTDD
== END 2016-10-16 14:00 | disposition home or self-care (01) | DRG 175 ==
LOC: ED 08:00 → MEDTELE 09:26 → ICU 10-15 13:00 → OBSVTOIN 10-15 13:49
PROVIDERS: ADMIT Internal Medicine; ATTEND Internal Medicine
PROC: B2111ZZ Fluoroscopy of Multiple Coronary Arteries using Low Osmolar Contrast (ICD-10-PCS; 2016-10-15)
PROC: B2151ZZ Fluoroscopy of Left Heart using Low Osmolar Contrast (ICD-10-PCS; 2016-10-15)
PROC: 4A023N7 Measurement of Cardiac Sampling and Pressure, Left Heart, Percutaneous Approach (ICD-10-PCS; 2016-10-15)
PROC: 3E033PZ Introduction of Platelet Inhibitor into Peripheral Vein, Percutaneous Approach (ICD-10-PCS; 2016-10-15)
PROC: 027034Z Dilation of Coronary Artery, One Artery with Drug-eluting Intraluminal Device, Percutaneous Approach (ICD-10-PCS; principal; 2016-10-15 11:00)
DX: I25.110 Atherosclerotic heart disease of native coronary artery with unstable angina pectoris (principal); I10 Essential (primary) hypertension; E78.00 Pure hypercholesterolemia, unspecified; K57.90 Diverticulosis of intestine, part unspecified, without perforation or abscess without bleeding; H91.90 Unspecified hearing loss, unspecified ear; G43.909 Migraine, unspecified, not intractable, without status migrainosus; F17.210 Nicotine dependence, cigarettes, uncomplicated; E78.5 Hyperlipidemia, unspecified; R06.02 Shortness of breath; R94.39 Abnormal result of other cardiovascular function study; Z95.1 Presence of aortocoronary bypass graft; Z82.49 Family history of ischemic heart disease and other diseases of the circulatory system; Z87.01 Personal history of pneumonia (recurrent); Z83.3 Family history of diabetes mellitus; Z80.1 Family history of malignant neoplasm of trachea, bronchus and lung; Z79.82 Long term (current) use of aspirin; Z79.02 Long term (current) use of antithrombotics/antiplatelets
CPT/HCPCS: 36415; 71010; 80048; 80053; 80061; 83605; 84484; 85025; 85379; 93005; 93017; 93458; 94760; 99406; A9270-GY; C1725; C1760; C1769; C1876; C1887; C9600-LD; G0378; J1644; J2001; J2250; J3010

== ENCOUNTER 2016-11-07 11:43 | Emergency (ER) | payer BC ==
[2016-11-07 11:59] VITALS: BP 112/69
--- NOTE | 2016-11-10 15:54 | UC ---
I, Oh,Soohog, scribed for Josselin De La Torre DO on 11/07/16 at 1301 . Skin Complaint HPI - HPI Summary HPI Summary: This 56 y/o male presents to [facility] for "bumpy bruises" across bilat upper extremities that were noted 3 days ago. Negative dizziness, n/v, dysuria, CP, SOB, hematuria, black stool, bleeding gums, or weakness. Positive fatigue since 1 week ago. Pt recently had cardiac cath done on 10/2016. Cath site was right groin, and pt denies any abscess, ecchymosis, or any skin change round his groin or BLE. PMHx includes AR s/p stent in October 2016, HLD, HTN, and lyme disease 3 years ago. He is currently on Brilinta. 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 - History of Current Complaint Chief Complaint: UCWounds Stated Complaint: BRUISING Hx Obtained From: Patient, Medical Records Onset/Duration: Sudden Onset, Lasting Days - 3 days ago, Still Present Pain Intensity: 1 Pain Scale Used: 0-10 Numeric Location: Other - bilat upper arms Character: Raised Aggravating: Nothing Alleviating: Nothing Associated Signs & Symptoms: Positive: Bruising - Allergy/Home Medications Allergies/Adverse Reactions: Allergies Allergy/AdvReac Type Severity Reaction Status Date / Time No Known Allergies Allergy Verified 11/07/16 11:59 Review of Systems Constitutional: Fatigue Skin: Other - "bumpy bruises" Eyes: Negative ENT: Negative Respiratory: Negative Cardiovascular: Negative Gastrointestinal: Negative Genitourinary: Negative Motor: Negative Neurovascular: Negative Musculoskeletal: Negative Neurological: Negative Psychological: Negative All Other Systems Reviewed And Are Negative: Yes PMH/Surg Hx/FS Hx/Imm Hx Endocrine History Of: Denies: Diabetes, Thyroid Disease Cardiovascular History Of: Reports: Cardiac Disorders - AR 10/2016; Cardiac Stent 10/2016, Hypertension Respiratory History Of: Reports: Pneumonia Denies: COPD, Asthma GI/ History Of: Denies: Ulcer, Renal Disease Neurological History Of: Reports: Migraine - Surgical History Surgical History: Yes Surgery Procedure, Year, and Place: bilateral hernia repair approx 2005. Cardiac Cath with stent 10/2016 - Family History Known Family History: Positive: Cardiac Disease, Other - no history of blood clots - Social History Alcohol Use: None Alcohol Amount: 2 Substance Use Type: None Smoking Status (MU): Light Every Day Tobacco Smoker Type: Cigarettes Amount Used/How Often: 1-2cig/day Household Exposure Type: Cigarettes - Immunization History Most Recent Influenza Vaccination: 2017 Most Recent Tetanus Shot: Within 10 years Most Recent Pneumonia Vaccination: never Physical Exam Triage Information Reviewed: Yes Appearance: Well-Appearing, Well-Nourished Vital Signs: Initial Vital Signs Temp 97.5 F 11/07/16 11:52 Pulse 74 11/07/16 11:52 Resp 16 11/07/16 11:52 BP 112/69 11/07/16 11:52 Pulse Ox 97 11/07/16 11:52 Vital Signs Reviewed: Yes Eyes: Positive: Conjunctiva Clear. Negative: Discharge ENT: Positive: Hearing grossly normal. Negative: Muffled/hoarse voice Neck exam: Normal Neck: Positive: Supple Respiratory: Positive: Lungs clear, Normal breath sounds, No respiratory distress Cardiovascular: Positive: RRR, No Murmur Musculoskeletal: Positive: Strength Intact, ROM Intact Neurological: Positive: Alert, Muscle Tone Normal Psychological: Positive: Age Appropriate Behavior Skin: Positive: Other - Several small hematoma of 1 cm on lateral aspect of RUE and less 1 cm diameter on medial aspect of LUE brachium. Mildly palpable, raised "lumps" on RUE lateral aspect of elbow. Re-Evaluation - Re-Evaluation First Eval Re-Evaluation Time: 13:14 Comment: Consultation with Dr. Iniguez is shared with pt. Course/Dx - Course Course Of Treatment: Current medication list is reviewed and confirmed. VSS and reviewed. - Diagnoses Provider Diagnoses: anti-coagulation, contusion - Physician Notification/Consults Discussed Patient Care With: Dr. Iniguez (Clothing Patternmaker) at 1310 PM Time Discussed With Above Provider: 13:10 Discharge - Discharge Plan Condition: Stable Disposition: HOME Patient Education Materials: Ticagrelor (By mouth), Contusion in Adults (ED) Referrals: Isaias Gresham MD [Primary Care Provider] - If Needed Magdaleno Joshua MD [Medical Doctor] - (follow up in 3-5 days) The documentation as recorded by the Keyshawn alejandre Soohyun accurately reflects the service I personally performed and the decisions made by , Josselin De La Torre DO.
== END 2016-11-07 13:27 | disposition home or self-care (01) ==
LOC: UCEAST 11:43
DX: S40.021A Contusion of right upper arm, initial encounter (principal); X58.XXXA Exposure to other specified factors, initial encounter; Y93.9 Activity, unspecified; Y99.9 Unspecified external cause status; Z79.01 Long term (current) use of anticoagulants
CPT/HCPCS: 99211; G0463

== ENCOUNTER 2017-02-10 09:57 | Emergency (ER) | payer BC ==
[2017-02-10 10:14] VITALS: BP 151/89
--- NOTE | 2017-02-10 10:28 | UC ---
Bull Campbell Alfonso, scribed for Lars Veliz MD on 02/10/17 at 1022 . Dizzy HPI HPI Summary: This patient is a 56 year old M presenting to [facility] with a chief complaint of lightheaded dizziness since this morning. Symptoms aggravated by standing. Symptoms alleviated by lying down. Patient reports diaphoresis, CP (began yesterday mid sternal burning and does not radiate), SOB, nausea, disorientation , and migraine. Patient denies fever, rhinorrhea, belching, extremity tingling, extremity weakness, calf pain, and calf swelling. He takes a baby ASA every morning. Tobacco abuse disorder. He states these symptoms are similar to those when he had stents placed. PMHx of CAD (October 2016 stent), and HLD. - History Of Current Complaint Stated Complaint: DIZZY Time Seen by Provider: 02/10/17 10:07 Hx Obtained From: Patient Onset/Duration: Sudden Onset, Lasting Hours - This morning, Still Present Timing: Constant Severity Initially: Moderate Severity Currently: Moderate Character: Lightheaded Aggravating Factor(s): Position Change - Standing Alleviating Factor(s): Lying Down Associated Signs And Symptoms: Positive: Nausea, Diaphoresis - Allergies/Home Medications Allergies/Adverse Reactions: Allergies Allergy/AdvReac Type Severity Reaction Status Date / Time No Known Allergies Allergy Verified 11/07/16 11:59 PMH/Surg Hx/FS Hx/Imm Hx Endocrine History: Dyslipidemia Cardiovascular History: Cardiac Disease - Surgical History Surgical History: Yes Surgery Procedure, Year, and Place: bilateral hernia repair approx 2005. Cardiac Cath with stent 10/2016 - Family History Known Family History: Positive: Cardiac Disease, Other - CVA. Negative history of blood clots - Social History Alcohol Use: None Alcohol Amount: 2 Substance Use Type: None Smoking Status (MU): Light Every Day Tobacco Smoker Type: Cigarettes Amount Used/How Often: 1-2cig/day Household Exposure Type: Cigarettes - Immunization History Most Recent Influenza Vaccination: 2017 Most Recent Tetanus Shot: Within 10 years Most Recent Pneumonia Vaccination: never Review of Systems Constitutional: Other - Diaphoresis; negative fever. ENT: Other - Negative rhinorrhea Respiratory: Shortness Of Breath Cardiovascular: Chest Pain Gastrointestinal: Other - Negative belching Musculoskeletal: Other: - Negative calf pain, and calf swelling Psychological: Other - Positive lightheaded dizziness, disorientation, and migraine; negative extremity tingling, extremity weakness All Other Systems Reviewed And Are Negative: Yes Physical Exam Triage Information Reviewed: Yes Vital Signs: Initial Vital Signs Temp 98.4 F 02/10/17 10:08 Pulse 87 02/10/17 10:08 Resp 20 02/10/17 10:08 BP 151/89 02/10/17 10:08 Pulse Ox 97 02/10/17 10:08 Vital Signs Reviewed: Yes - Additional Comments The patient is well-nourished in no acute distress and in no acute pain. The skin is warm and diaphoretic and skin color reflects adequate perfusion. HEENT: The head is normocephalic and atraumatic. The pupils are equal and reactive. EOMI. No nystagmus. The conjunctivae are clear and without drainage. Nares are patent and without drainage. Mouth reveals moist mucous membranes and the throat is without erythema and exudate. The external ears are intact. The ear canals are patent and without drainage. The tympanic membranes are intact. Neck is supple with full range of motion and non-tender. There are no carotid bruits. There is no neck vein distension. Respiratory: Chest is non-tender. Lungs are clear to auscultation and breath sounds are symmetrical and equal. Cardiovascular: Heart is regular rate and rhythm. There is no murmur or rub auscultated. Pulses are symmetrical and equal. Abdomen: The abdomen is soft and non-tender. Musculoskeletal: There is no back pain noted. Extremities are non-tender with full range of motion. There is good capillary refill. There is no peripheral edema or calf tenderness elicited. No reproducible chest pain. Neurological: Patient is alert and oriented to person, place and time. The patient has symmetrical motor strength in all four extremities. Cranial nerves are grossly intact. No facial droop. No FND. Psychiatric: The patient has an appropriate affect. Diagnostics - EKG Cardiac Rate: NL - BPM 91 Cardiac Rhythm: Sinus: Normal - At 0955. Normal [place]. No STEMI. Dizzy Course/Dx - Course Course Of Treatment: This patient is a 56 year old M presenting to [facility] with a chief complaint of lightheaded dizziness since this morning. Symptoms aggravated by standing. Symptoms alleviated by lying down. Patient reports diaphoresis, CP (began yesterday mid sternal burning and does not radiate), SOB , nausea, disorientation, and migraine. Patient denies fever, rhinorrhea, belching, extremity tingling, extremity weakness, calf pain, and calf swelling. He takes a baby ASA every morning. Tobacco abuse disorder. He states these symptoms are similar to those when he had stents placed. PMHx of CAD (October 2016 stent), and HLD. EKG reveals NSR. Discussed with the patient the need to go to higher level of care. Recommended ambulance transport. Pt has declined at this time. Pt instructed to go immediately to the ED and also to FOLLOW UP WITH PRIMARY CARE PROVIDER WITHIN TWO WEEKS FOR HIGH BLOOD PRESSURE NOTED TODAY AT 151/89. The patient is agreeable with this plan. - Differential Dx/Diagnosis Differential Diagnosis/HQI/PQRI: Benign Paroxysmal Positional Vertigo, Coronary Artery Disease, CVA, Hypovolemia, Labyrinthitis, Metabolic Abnormality, Myocardial Infarction, Transient Ischemic Attack Provider Diagnoses: CP, dizziness. Discharge - Discharge Plan Condition: Stable Disposition: [facility] Discharge Disposition Comment: [facility] [place] [facility]. Patient Education Materials: Dizziness (ED), Chest Pain (ED) Referrals: Isaias Gresham MD [Primary Care Provider] - 1 Day Additional Instructions: GO IMMEDIATELY TO [facility] [place] [facility]PT WITHOUT STOPPING. FOLLOW UP WITH YOUR PRIMARY CARE PROVIDER WITHIN TWO WEEKS FOR HIGH BLOOD PRESSURE NOTED TODAY AT 151/89. The documentation as recorded by the Bull alejandre Alfonso accurately reflects the service I personally performed and the decisions made by me, Lars Veliz MD.
== END 2017-02-10 10:27 | disposition short-term general hospital (02) ==
LOC: UCEAST 09:57
DX: R07.89 Other chest pain (principal); R42 Dizziness and giddiness; R06.02 Shortness of breath; R11.0 Nausea; E78.5 Hyperlipidemia, unspecified; I25.10 Atherosclerotic heart disease of native coronary artery without angina pectoris; Z95.5 Presence of coronary angioplasty implant and graft; F17.210 Nicotine dependence, cigarettes, uncomplicated
CPT/HCPCS: 93005; 99212; G0463

== ENCOUNTER 2017-02-10 11:07 | Observation (INO) | payer BC ==
[2017-02-10] MEDS: NS 0.9% 1000 ML* 1,000 ML IV SCH ×2 (11:47→15:50)
[2017-02-10 12:08] LABS: Hematocrit 43 % (42-52); Hemoglobin 14.8 g/dl (14.0-18.0); Mean Corpuscular HGB Conc 34 g/dl (31-36); Mean Corpuscular Hemoglobin 31 pg (27-31); Mean Corpuscular Volume 90 fL (80-94); Mean Platelet Volume 8 um3 (7.4-10.4); Red Blood Count 4.78 10^6/ul (4.0-5.4); Red Cell Distribution Width 14 % (10.5-15); White Blood Count 9.2 10^3/ul (3.5-10.8)
--- NOTE | 2017-02-10 12:18 | RAD ---
HISTORY: Chest pain COMPARISONS: October 14, 2016 VIEWS:1: Single frontal portable view of the chest at 11:43 AM FINDINGS: LINES AND TUBES: None. CARDIOMEDIASTINAL SILHOUETTE: The cardiomediastinal silhouette is normal for portable technique. PLEURA: The costophrenic angles are sharp. No pleural abnormalities are noted. LUNG PARENCHYMA: The lungs are clear. ABDOMEN: The upper abdomen is clear. There is no subphrenic gas. BONES AND SOFT TISSUES: No bone or soft tissue abnormalities are noted. IMPRESSION: NO ACTIVE CARDIOPULMONARY DISEASE.
[2017-02-10 12:23] LABS: Albumin 4.2 g/dL (3.2-5.2); BUN/Creatinine Ratio 15.2 (8-20); C Reactive Protein 2.15 mg/L (< 5.00); Calcium 9.4 mg/dL (8.6-10.3); EGFR African American 109.1 (>60); EGFR Non-African American 84.8 (>60); Globulin 2.6 g/dL (2-4); Potassium 3.7 mmol/L (3.5-5.0); Total Bilirubin 0.7 mg/dL (0.2-1.0); Total Protein 6.8 g/dL (6.4-8.9)
--- NOTE | 2017-02-10 12:23 | RAD ---
INDICATION: Left occipital headache. COMPARISON: Comparison is made with a prior study from January 14, 2014. TECHNIQUE: Contiguous axial sections of the brain were obtained from the skull base to the vertex without contrast. FINDINGS: The ventricles, cisterns and sulci are within normal limits. No significant focal abnormality or mass effect is seen. There is no evidence for hemorrhage. No significant focal osseous abnormality is seen. The visualized portion of the paranasal sinuses and mastoid air cells appear clear. IMPRESSION: NO EVIDENCE FOR ACUTE INTRACRANIAL ABNORMALITY.
[2017-02-10] MEDS ORDERED: Morphine INJ* 2 MG/ML 1 ML SYRINGE IV PRN (12:47)
[2017-02-10] MEDS ORDERED: Acetaminophen TAB* 325 MG PO PRN (12:47)
[2017-02-10 13:02] LABS: TSH (Thyroid Stimulating Horm) 0.6 mcIU/mL (0.34-5.60)
[2017-02-10 13:22] LABS: HDL Cholesterol 37.1 mg/dL
--- NOTE | 2017-02-10 14:25 | ED ---
Alexnadrea Campbell Thomas, scribed for Pierre Marrero MD on 02/10/17 at 1125 . HPI Chest Pain - HPI Summary HPI Summary: The pt is a 56 y/o M referred from [facility] and presenting to the ED c/o mid sternal CP that began yesterday at 12:00. The pain is rated 5/10. He reports that his CP radiates to his neck and right arm. The CP is not reproducible. The pain is aggravated by walking and alleviated by nothing. The patient has treated the pain with nothing prior to arrival. Pt additionally c/o a L-sided occipital OSORIO ( pretty severe, nothing aggravates or alleviates, Tylenol does not alleviate his pain), nausea, subjective disorientation, wrist pain, diaphoresis, left ear pain, bilateral chronic Achilles tendon pain, and chronic SOB secondary to his smoking. Pt denies weakness, numbness, tingling, abd pain, calf swelling, and calf pain. Last week, he began unspecified anxiety and prostate medication. He is on blood pressure medication, a blood thinner, Lipitor, and baby aspirin. He took his normal medication today. PMHx: HLD, HTN, PNA, syncope, migraines, hearing loss, and anxiety. PSHx: cardiac catheterization (10/2016). SHx: smoking , no alcohol use, no illicit drug use. FHx: CAD, CVA. - History of Current Complaint Chief Complaint: EDChestPainROMI Time Seen by Provider: 02/10/17 11:14 Hx Obtained From: Patient Onset/Duration: Started Days Ago - 1, Still Present Timing: Constant Pain Intensity: 5 Pain Scale Used: 0-10 Numeric Chest Pain Location: Mid Sternal Chest Pain Radiates To:: Arm - R, Neck Aggravating Factor(s): Exertion - walking Alleviating Factor(s): Nothing Associated Signs and Symptoms: Positive: Chest Pain, Anxiety, Headaches - severe , L-sided occipital, pretty severe, nothing aggravates or alleviates, Tylenol does not alleviate his pain, Shortness of Breath - chronic, secondary to smoking , Diaphoresis, Nausea, Other: - POS: subjective disorientation, wrist pain, bilateral Achilles tendon pain,. Negative: Numbness, Tingling, Weakness, Swelling - leg, Fever, Abdominal Pain, Calf Pain/Swelling, Vomiting - Additional Pertinent History Primary Care Physician: [id number] - Allergy/Home Medications Allergies/Adverse Reactions: Allergies Allergy/AdvReac Type Severity Reaction Status Date / Time No Known Allergies Allergy Verified 11/07/16 11:59 PMH/Surg Hx/FS Hx/Imm Hx Previously Healthy: No Endocrine/Hematology History: Denies: Hx Diabetes, Hx Thyroid Disease Cardiovascular History: Reports: Hx Hypercholesterolemia, Hx Hypertension, Other Cardiovascular Problems/Disorders - history of "blacking out" Respiratory History: Reports: Hx Pneumonia Denies: Hx Asthma, Hx Chronic Obstructive Pulmonary Disease (COPD) GI History: Reports: Hx Diverticulosis, Other GI Disorders - colitis Denies: Hx Ulcer History: Denies: Hx Dialysis, Hx Renal Disease Sensory History: Reports: Hx Contacts or Glasses, Hx Deafness Denies: Hx Hearing Aid Opthamlomology History: Reports: Hx Contacts or Glasses Neurological History: Reports: Hx Headaches, Hx Migraine - Surgical History Surgery Procedure, Year, and Place: bilateral hernia repair approx 2005. Cardiac Cath with stent 10/2016 Hx Anesthesia Reactions: No Infectious Disease History: Denies: Hx Hepatitis, Hx Human Immunodeficiency Virus (HIV), History Other Infectious Disease, Traveled Outside the [place] in Last 30 Days - Family History Known Family History: Positive: Cardiac Disease, Other - CVA. Negative history of blood clots - Social History Alcohol Use: None Substance Use Type: Reports: None Smoking Status (MU): Light Every Day Tobacco Smoker Type: Cigarettes Amount Used/How Often: 1-2cig/day Review of Systems Negative: Fever Positive: Ear Ache - L-sided Positive: Chest Pain - midsternal, onset yesterday, 10/23, not reproducible Positive: Nausea Positive: Other - POS: wrist pain, bilateral chronic Achilles tendon pain; NEG: calf pain, calf swelling. Negative: Edema - leg Neurological: Other - POS: subjective disorientation; NEG: tingling Positive: Headache - L-sided occipital, "pretty severe", nothing aggravates or alleviates. Negative: Weakness, Numbness All Other Systems Reviewed And Are Negative: Yes Physical Exam Triage Information Reviewed: Yes Vital Signs On Initial Exam: Initial Vitals Temp Pulse Resp BP Pulse Ox 97.9 F 86 18 152/87 98 02/10/17 11:08 02/10/17 11:08 02/10/17 11:08 02/10/17 11:08 02/10/17 11:08 Vital Signs Reviewed: Yes Appearance: Positive: Well-Appearing, No Pain Distress, Well-Nourished Skin: Positive: Warm, Skin Color Reflects Adequate Perfusion, Dry Head/Face: Positive: Normal Head/Face Inspection Eyes: Positive: EOMI, MCKENNA ENT: Positive: Normal ENT inspection Neck: Positive: Supple, Nontender Respiratory/Lung Sounds: Positive: Clear to Auscultation, Breath Sounds Present Cardiovascular: Positive: RRR Abdomen Description: Positive: Nontender, Soft Musculoskeletal: Positive: Strength/ROM Intact, Other - The achilles tendons are tender to palpation. The calves are NOT tender to palpation Neurological: Positive: Normal, Sensory/Motor Intact, CN Intact II-III Psychiatric: Positive: Anxious - mildly Diagnostics - Vital Signs Vital Signs Temp Pulse Resp BP Pulse Ox 02/10/17 11:08 97.9 F 86 18 152/87 98 - Laboratory Lab Results: Lab Results 02/10/17 02/10/17 02/10/17 Range/Units 11:55 11:55 11:55 WBC (3.5-10.8) 10^3/ul RBC (4.0-5.4) 10^6/ul Hgb (14.0-18.0) g/dl Hct (42-52) % MCV (80-94) fL MCH (27-31) pg MCHC (31-36) g/dl RDW (10.5-15) % Plt Count (150-450) 10^3/ul MPV (7.4-10.4) um3 Neut % (Auto) (38-83) % Lymph % (Auto) (25-47) % Barbour % (Auto) (1-9) % Eos % (Auto) (0-6) % Baso % (Auto) (0-2) % Absolute Neuts (auto) (1.5-7.7) 10^3/ul Absolute Lymphs (auto) (1.0-4.8) 10^3/ul Absolute Monos (auto) (0-0.8) 10^3/ul Absolute Eos (auto) (0-0.6) 10^3/ul Absolute Basos (auto) (0-0.2) 10^3/ul Absolute Nucleated RBC 10^3/ul Nucleated RBC % INR (Anticoag Therapy) 0.94 (0.89-1.11) APTT 32.6 (26.0-36.3) seconds D-Dimer, Quantitative < 200 (Less Than 230) ng/mL Sodium 137 (133-145) mmol/L Potassium 3.7 (3.5-5.0) mmol/L Chloride 107 (101-111) mmol/L Carbon Dioxide 23 (22-32) mmol/L Anion Gap 7 (2-11) mmol/L BUN 14 (6-24) mg/dL Creatinine 0.92 (0.67-1.17) mg/dL Est GFR ( Amer) 109.1 (>60) Est GFR (Non-Af Amer) 84.8 (>60) BUN/Creatinine Ratio 15.2 (8-20) Glucose 109 H (70-100) mg/dL Lactic Acid (0.5-2.0) mmol/L Calcium 9.4 (8.6-10.3) mg/dL Magnesium 2.0 (1.9-2.7) mg/dL Total Bilirubin 0.70 (0.2-1.0) mg/dL AST 20 (13-39) U/L ALT 23 (7-52) U/L Alkaline Phosphatase 56 (34-104) U/L Total Creatine Kinase 275 H (10-223) U/L CK-MB (CK-2) 5.3 (0.6-6.3) ng/mL Troponin I 0.00 (<0.04) ng/mL C-Reactive Protein 2.15 (< 5.00) mg/L B-Natriuretic Peptide 16 ( - 100) pg/mL Total Protein 6.8 (6.4-8.9) g/dL Albumin 4.2 (3.2-5.2) g/dL Globulin 2.6 (2-4) g/dL Albumin/Globulin Ratio 1.6 (1-3) Triglycerides 84 mg/dL Cholesterol 109 mg/dL LDL Cholesterol 55 mg/dL HDL Cholesterol 37.1 mg/dL Lipase 23 (11.0-82.0) U/L TSH 0.60 (0.34-5.60) mcIU/mL 02/10/17 02/10/17 Range/Units 11:55 11:55 WBC 9.2 (3.5-10.8) 10^3/ul RBC 4.78 (4.0-5.4) 10^6/ul Hgb 14.8 (14.0-18.0) g/dl Hct 43 (42-52) % MCV 90 (80-94) fL MCH 31 (27-31) pg MCHC 34 (31-36) g/dl RDW 14 (10.5-15) % Plt Count 227 (150-450) 10^3/ul MPV 8 (7.4-10.4) um3 Neut % (Auto) 72.2 (38-83) % Lymph % (Auto) 20.8 L (25-47) % Barbour % (Auto) 5.7 (1-9) % Eos % (Auto) 0.4 (0-6) % Baso % (Auto) 0.9 (0-2) % Absolute Neuts (auto) 6.7 (1.5-7.7) 10^3/ul Absolute Lymphs (auto) 1.9 (1.0-4.8) 10^3/ul Absolute Monos (auto) 0.5 (0-0.8) 10^3/ul Absolute Eos (auto) 0 (0-0.6) 10^3/ul Absolute Basos (auto) 0.1 (0-0.2) 10^3/ul Absolute Nucleated RBC 0 10^3/ul Nucleated RBC % 0 INR (Anticoag Therapy) (0.89-1.11) APTT (26.0-36.3) seconds D-Dimer, Quantitative (Less Than 230) ng/mL Sodium (133-145) mmol/L Potassium (3.5-5.0) mmol/L Chloride (101-111) mmol/L Carbon Dioxide (22-32) mmol/L Anion Gap (2-11) mmol/L BUN (6-24) mg/dL Creatinine (0.67-1.17) mg/dL Est GFR ( Amer) (>60) Est GFR (Non-Af Amer) (>60) BUN/Creatinine Ratio (8-20) Glucose (70-100) mg/dL Lactic Acid 0.8 (0.5-2.0) mmol/L Calcium (8.6-10.3) mg/dL Magnesium (1.9-2.7) mg/dL Total Bilirubin (0.2-1.0) mg/dL AST (13-39) U/L ALT (7-52) U/L Alkaline Phosphatase (34-104) U/L Total Creatine Kinase (10-223) U/L CK-MB (CK-2) (0.6-6.3) ng/mL Troponin I (<0.04) ng/mL C-Reactive Protein (< 5.00) mg/L B-Natriuretic Peptide ( - 100) pg/mL Total Protein (6.4-8.9) g/dL Albumin (3.2-5.2) g/dL Globulin (2-4) g/dL Albumin/Globulin Ratio (1-3) Triglycerides mg/dL Cholesterol mg/dL LDL Cholesterol mg/dL HDL Cholesterol mg/dL Lipase (11.0-82.0) U/L TSH (0.34-5.60) mcIU/mL Result Diagrams: 02/10/17 11:55 02/10/17 11:55 Lab Statement: Any lab studies that have been ordered have been reviewed, and results considered in the medical decision making process. - Radiology CXR Xray Interpretation: No Acute Changes - no active cardiopulmonary disease Radiology Interpretation Completed By: Radiologist - CT CT Brain CT Interpretation: No Acute Changes - NO EVIDENCE FOR ACUTE INTRACRANIAL ABNORMALITY CT Interpretation Completed By: Radiologist - EKG 11:44 Cardiac Rate: NL - 78 BPM EKG Interpretation: Normal sinus, nml ST, no ectopy. Chest Pain Course/Dx - Course Assessment/Plan: The pt is a 56 y/o M referred from [facility] and presenting to the ED c/o mid sternal CP that began yesterday at 12:00. The pain is rated 5/10. He reports that his CP radiates to his neck and right arm. The CP is not reproducible. The pain is aggravated by walking and alleviated by nothing. The patient has treated the pain with nothing prior to arrival. Pt additionally c/o a L-sided occipital OSORIO (pretty severe, nothing aggravates or alleviates, Tylenol does not alleviate his pain), nausea, subjective disorientation, wrist pain, diaphoresis, left ear pain, bilateral chronic Achilles tendon pain, and chronic SOB secondary to his smoking. Pt denies weakness, numbness, tingling, abd pain, calf swelling, and calf pain. Last week, he began unspecified anxiety and prostate medication. He is on blood pressure medication, a blood thinner, Lipitor, and baby aspirin. He took his normal medication today. PMHx: HLD, HTN, PNA, syncope, migraines, hearing loss, and anxiety. PSHx: cardiac catheterization (10/2016). SHx: smoking, no alcohol use, no illicit drug use. FHx: CAD, CVA. In the ED course the patient was given IV fluids. Bloodwork shows D-dimer less than 200, Glucose 109, Troponin 0.00, BNP 16, and Creatine Kinase 275. EKG reveals normal sinus with normal ST and no ectopy. Brain CT reveals NO EVIDENCE FOR ACUTE INTRACRANIAL ABNORMALITY. CXR reveals no active cardiopulmonary disease. ED physician has reviewed this radiology report and agrees. I consulted with eloise Ghotra, who accepts the patient for admission at 12:47. Pt is agreeable with this plan. ADMIT HOSPITALIST STABLE. - Diagnoses Provider Diagnoses: Chest pain, Headache - Provider Notifications Discussed Care Of Patient With: Christiano Worley Time Discussed With Above Provider: 12:47 Instructed by Provider To: Other - I consulted with eloise Ghotra, who accepts the patient for admission at 12:47 Discharge - Discharge Plan Condition: Stable Disposition: ADMITTED TO [facility] The documentation as recorded by the Alexandrea alejandre Thomas accurately reflects the service I personally performed and the decisions made by me, Pierre Marrero MD.
[2017-02-10 19:27] LABS: Urine Bacteria Absent (Absent); Urine Bilirubin Negative (Negative); Urine Glucose Negative (Negative); Urine Nitrite Negative (Negative)
[2017-02-10 20:11] VITALS: BP 129/82
[2017-02-10] MEDS ORDERED: Ticagrelor* 90 MG TAB PO SCH (21:00)
[2017-02-10] MEDS ORDERED: Docusate CAP* 100 MG PO SCH (21:00)
--- NOTE | 2017-02-10 22:16 | HP ---
CC: Dr. Gresham * ADMISSION HISTORY AND PHYSICAL AND DISCHARGE SUMMARY: DATE OF ADMISSION: 02/10/17 DATE OF DISCHARGE: 02/10/17 PRIMARY CARE PROVIDER: Dr. Isaias Gresham. Chief Complaint: chest pain DISCHARGE DIAGNOSIS: Chest pain/headache - both resolved shortly after admission without specific intervention. SECONDARY DIAGNOSES: 1. Known coronary disease and ongoing smoking, status post admission at [facility] [place] for chest pain resulting in left anterior descending artery drug-eluting stent deployed by Dr. Kory Murry with ongoing cardiology care by Dr. Magdaleno Joshua. 2. Hyperlipidemia. 3. Hypertension. 4. Ongoing tobacco abuse. 5. History of colitis. DISCHARGE MEDICATION REGIMEN: No medication changes intended and include: 1. Aspirin 81 mg by mouth daily. 2. Lipitor 80 mg by mouth daily. 3. Wellbutrin 150 mg by mouth daily. 4. Lisinopril 2.5 mg by mouth daily. 5. Flomax 0.4 mg by mouth at bedtime. 6. Brilinta 90 mg by mouth twice daily. 7. Trazodone 50 mg by mouth at bedtime p.r.n. ALLERGIES: No known drug allergies. FAMILY HISTORY: His mother at 60 secondary to diabetes and heart problems. His father in his 70s from an [place]. He had lung cancer. SOCIAL HISTORY: The patient still smokes about a half a pack a day and has done so for many years. He is not drinking alcohol. He denies any recreational drug use. He is and his is his healthcare proxy. 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 REVIEW OF SYSTEMS: A review of 14 systems is accomplished at the point of admission, this was negative except for the pertinent positives mentioned above in the HPI and past medical history. HISTORY OF PRESENT ILLNESS: Mr. Mcdermott is a 56-year-old gentleman, who presents to the hospital with an array of complaints most concerning for chest pain. He states he has been having substernal chest pain with unclear radiation for about 2 days. He primarily is concerned about pressure sensation in his mid chest. He thinks it is similar to indigestion. In addition, he has a headache around his left mastoid region, left occipital area that is unclearly related to his chest pain. He thinks it may be a radiation, but cannot be sure. He also says he has vague wrist pain. He has also been complaining of intermittent dizziness for about the past 3 days. He feels " like his head is full of water." He also experienced intermittent sweating, most recently this morning. He still continues to smoke tobacco, approximately half a pack per day, denies ongoing alcohol use. He states that his wrist pain was different than the wrist pain that accompanied his chest pain when he proceeded to cardiac catheterization. He states he is very compliant with his outpatient medication regimen detailed above and that he follows with Dr. Joshua in the outpatient setting for ongoing cardiology care. He states he has a stress test scheduled for April. The patient is approximately 180 pounds and he describes no changes in his weight. He has a dry cough that is ascribed to his lisinopril (JOANN) use. He states that he has anxiety and that the medications he takes sometimes make him worse. With this, he came to the urgent care center today and was forwarded to the emergency room where the patient was found to be in some degree of chest pain that resolved spontaneously. By the time I met the patient at admission, the patient stated that his headache and chest pain had resolved and that he was not interested in spending the night, but would be interested in having serial troponins drawn to ensure he is not having heart attack. His EKG was normal sinus rhythm without any events of active ischemia. There were no ST or T wave changes of concern. His vital signs were normal and stable and he did not have any reproducible chest pain at the time of admission. The patient denies any recent sick contacts. He denies any spicy foods or risk factors for indigestion. The patient is confused about his various symptoms. PHYSICAL EXAMINATION ON ADMISSION GENERAL APPEARANCE: The patient is in no apparent distress. He is sitting in a hospital gurperu. He is awake, alert, and oriented x3. VITAL SIGNS: Temperature 97.9 degrees Fahrenheit, pulse 70s to 80s and regular , respirations are 18 and regular and unlabored, oxygen saturation high 90s on room air. Blood pressure was as high as 150/80s, was rechecked, in the 130s and 140s/80s to low 90s. HEENT: Oropharynx is clear. Mucous membranes are moist. No posterior pharyngeal erythema or exudate. I do not appreciate any posterior or anterior cervical lymphadenopathy. He does not have any focal tenderness on his posterior occipital area. He has got full range of motion in his neck. NECK: Supple. No elevated JVD. Midline trachea. Normal thyroid. No carotid bruits. CHEST: Clear breath sounds anteriorly and posteriorly. No rales, rhonchi, or wheezing. No anterior chest wall tenderness. HEART: Sounds are regular with a regular rate and rhythm. No murmurs are appreciated. ABDOMEN: Soft and nontender. No epigastric focal tenderness on deep palpation. EXTREMITIES: Without clubbing, cyanosis, or edema. His hands are somewhat stained secondary to his work. LYMPH: No adenopathy appreciated. NEUROLOGIC: Nonfocal exam with no sensory, motor, proprioception, or reflex component deficiency. PSYCH: Normal affect. No acute anxiety or depression. SKIN: His skin is dry and intact. No rashes, lesions, or breakdown. DIAGNOSTIC STUDIES/LAB DATA: Admission data: Generally unremarkable with a white blood cell count of 9.2 and a normal differential, hemoglobin 14.8, platelets 227. INR 0.94, D-dimer less than 200. Blood chemistries unremarkable , save a one-time glucose at 109 that was not a fasting level. His electrolytes are within normal limits including magnesium, his LFTs are unremarkable with a total CK that is elevated at 275 (on high-dose statin). His initial troponin was 0.00 with a CK-MB of 5.3 (normal), CRP 2.15 (normal), BNP normal at 16. Total protein, albumin, and globulin values are normal. His triglycerides were 84, total cholesterol of 109 with an LDL component of 55. His TSH was unremarkable at 0.6. Chest x-ray showed no acute pulmonary disease or intrathoracic disease. His brain CT was negative for any evidence of stroke or sinus disease. IMPRESSION: Mr. Mdcermott is a 56-year-old gentleman who came to the emergency room for chest pain that has been going for 2 days and is nonspecific. He has a concerning history of coronary disease, hypertension, and hyperlipidemia with a stent placed in October, on a cocktail of cardiac medications including dual- antiplatelet therapy, an JOANN inhibitor for hypertension, high-dose statin. The patient is being followed by Cardiology and has a stress test scheduled for April. PLAN BY MEDICAL PROBLEM: 1. Chest pain with multiple risk factors for coronary disease and history thereof. It will be prudent to ensure Mr. Mcdermott is not having acute coronary syndrome by serial troponins and a repeat EKG. There are some concerning aspects of his story including his ongoing use of tobacco as well as ongoing chest discomfort that is somewhat related to exercise. The patient may benefit from a sooner stress test though he does not want to stay to have it adjacent to this observation stay. The patient is on a good medication regimen including aspirin, Brilinta, Lipitor, and lisinopril. He is chest pain free. His vital signs are normal and stable. The patient has a negative D-dimer, which effectively rules out a pulmonary embolism, and I believe that is low risk considering all factors. Perhaps Dr. Joshua and/or Estee Mitchell opt for a sooner stress test. 2. Headache - spontaneously resolved. Maybe related to a viral sinusitis though he did not have any opacifications in his sinuses on head CT. He states his head is sometimes full of fluid, which might be a sensation that I cannot correlate with a specific finding. We will communicate these findings with Dr. Joshua and Dr. Gresham as the patient has a followup appointment to see Dr. Gresham on 02/11/17 at 7 p.m. 3. Anxiety. Could these multiple symptoms be the result of anxiety and somatization. The patient states that he does have fluctuating levels of anxiety and states that his medication sometimes makes him feel worse, so he is generally untreated. I know this is being actively managed by Dr. Gresham and so perhaps there may be a role for a different anti-anxiety medication, but I will defer to his PCP for that. Mr. Mcdermott was given careful return to ED instructions following serially negative troponin values. He had an unchanged EKG at 7:45 p.m. There have been no irregularities in his telemetry monitoring during his 8 hours of observation during today. He is eager for discharge and wishes to discuss the case further with Dr. Gresham tomorrow. At this point, there is no medication changes intended and he will be discharged on the same medications detailed above. DISCHARGE DIAGNOSIS and CONSIDERATIONS: Chest pain, likely secondary to dyspepsia with less of a chance of acute coronary syndrome given negative troponins and normal EKG. Still given the patient's multiple cardiac risk factors and known history of obstructive coronary disease, he is to follow up with Cardiology sooner than originally intended and consider an earlier stress test if that is acceptable to the cardiology team. TIME SPENT: Total time taken to do the history and physical and admission was 55 minutes and the discharge took total of 40 minutes, greater than half the time spent at the bedside, going over the hospitalization plan and then the discharge instructions and answering multiple questions by the patient and his . [id number]/[facility] #: [id number] PAGE
[2017-02-11] MEDS ORDERED: Aspirin EC Low Dose* 81 MG TAB.EC PO SCH (09:00)
[2017-02-11] MEDS ORDERED: Lisinopril TAB* 5 MG PO SCH (09:00)
== END 2017-02-10 20:45 | disposition home or self-care (01) ==
LOC: ED 11:07 → MEDTELE 12:47
PROVIDERS: ADMIT Internal Medicine; ATTEND Internal Medicine
DX: R07.89 Other chest pain (principal); R51 Headache; I25.10 Atherosclerotic heart disease of native coronary artery without angina pectoris; F17.210 Nicotine dependence, cigarettes, uncomplicated; Z95.5 Presence of coronary angioplasty implant and graft; E78.5 Hyperlipidemia, unspecified; I10 Essential (primary) hypertension; R42 Dizziness and giddiness; F41.9 Anxiety disorder, unspecified
CPT/HCPCS: 36415; 70450; 71010; 80053; 80061; 81003; 81015; 82550; 82553; 83605; 83690; 83735; 83880; 84443; 84484; 85025; 85379; 85610; 85730; 86140; 93005; 96360; 99284; G0378

== ENCOUNTER 2017-08-02 13:45 | Emergency (ER) | payer BC ==
--- OUTSIDE RECORDS SUMMARY | 2017-08-02 13:50 | XMS REPORT ---
:1960 External Reference #:[id number] Author Organization [facility] Address [address] [place] [address] Phone [phone] Care Team Providers Name Role Phone Isaias Gresham MD Primary Care Physician Unavailable Payers Type Date Identification Numbers Payment Provider Subscriber Commercial Policy Number: [id number] [facility] Dave Mcdermott [place] PayID: [id number] 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 Cigarette Use Former Cigarette Smoker 1/2 Pack Daily Cigars Never Smoked Cigars Pipe Never Smoked A Pipe Smokeless Tobacco Never Used Smokeless Tobacco ETOH Use Does not drink alcohol Allergies, Adverse Reactions, Alerts Date Description Reaction Status Severity Comments 07/31/2017 NKDA active Medications Medication Date Status Form Strength Qnty SIG Indications Ordering Provider Tamsulosin HCL Active Capsules 0.4mg 1 by Unknown 000 mouth every day Lisinopril 0 Active Tablets 2.5mg 1 by Unknown 000 mouth every day Brilinta 0 Active Tablets 90mg bid Unknown 000 Aspirin 81 Low Active Chewtabs 81mg daily Unknown Dose 000 Bupropion HCL Active Tablets ER 150mg bid Unknown ER (SR) 000 12HR Omeprazole 00/00/[address] 20mg daily Unknown 000 Trazodone HCL Active Tablets 50mg daily Unknown 000 Atorvastatin Active Tablets 80mg 1 by Unknown Calcium 000 mouth every day Results Description No Information Procedures Date CPT Code Description Status 07/31/2017 38966 Tympanometry Completed 07/31/2017 31308 Comprehensive Audiogram Completed Encounters Type Date Location Provider CPT E/M Dx Office Visit 07/31/2017 10:[facility],[place] 06/16/07 [place] [address] J34.2 J34.3 H90.5 Plan of Care 07/31/2017 - Fransisco Howell MDJ34.2 Deviated nasal septumComments:At this point he would be a candidate for septoplasty except for his medical condition which has to do with his cardiac stent, this would require him to be off of his blood thinners. He states that this will happen in the summer. He'll return back at that point.J34.3 Hypertrophy of nasal [id number] Unspecified sensorineural hearing lossComments:The patient has findings of hearing loss related to noise exposure with the specific pattern affiliated with industrial noise. He has no family history of hearing loss.. He was advised and counseled regarding additional noise exposure. He was counseled regarding protection of his hearing. At this time no further investigations or treatment is warranted he would benefit from bilateral hearing aids.
[2017-08-02 13:58] VITALS: BP 139/92
--- NOTE | 2017-08-02 16:33 | UC ---
Henri Campbell Nilda, scribed for Isra Craig MD on 08/02/17 at 1419 . Respiratory Complaint HPI - HPI Summary HPI Summary: This patient is a 57 year old M presenting to [facility] with a chief complaint of constant URI symptoms for the past 3 weeks. The patient rates the pain 0/10 in severity. Symptoms aggravated and alleviated by nothing. Patient reports cough, chest tightness and SOB for the past 3 weeks. Patient also states intermittent non-radiating chest pressure and pain in bilat wrists that began today, which are symptoms that feel similar to previous cardiac event. PMHx includes HTN, HLD , and 90% occlusion found from stress test, for which a stent was placed. - History of Current Complaint Chief Complaint: UCRespiratory Stated Complaint: CHEST CONGESTION Time Seen by Provider: 08/02/17 14:00 Hx Obtained From: Patient Onset/Duration: Sudden Onset, Lasting Weeks, Still Present Timing: Constant Pain Intensity: 0 Pain Scale Used: 0-10 Numeric Aggravating Factors: Nothing Alleviating Factors: Nothing - Allergies/Home Medications Allergies/Adverse Reactions: Allergies Allergy/AdvReac Type Severity Reaction Status Date / Time No Known Allergies Allergy Verified 08/02/17 13:59 PMH/Surg Hx/FS Hx/Imm Hx Endocrine History: Dyslipidemia Cardiovascular History: Cardiac Disease, Hypertension, Other Other Cardiovascular History: 90% occlusion - Surgical History Surgical History: Yes Surgery Procedure, Year, and Place: bilateral hernia repair approx 2005. Cardiac Cath with stent 10/2016 - Family History Known Family History: Positive: Cardiac Disease, Other - CVA. Negative history of blood clots - Social History Alcohol Use: None Alcohol Amount: 2 Substance Use Type: None Smoking Status (MU): Heavy Every Day Tobacco Smoker Type: Cigarettes Amount Used/How Often: 1-2cig/day Household Exposure Type: Cigarettes - Immunization History Most Recent Influenza Vaccination: 2017 Most Recent Tetanus Shot: Within 10 years Most Recent Pneumonia Vaccination: never Review of Systems Respiratory: Shortness Of Breath, Cough, Other - chest tightness Cardiovascular: Chest Pain - pressure Musculoskeletal: Other: - pain in bilat wrist All Other Systems Reviewed And Are Negative: Yes Physical Exam Triage Information Reviewed: Yes Vital Signs: Initial Vital Signs Temp 97.8 F 08/02/17 13:55 Pulse 84 08/02/17 13:55 Resp 18 08/02/17 13:55 BP 139/92 08/02/17 13:55 Pulse Ox 97 08/02/17 13:55 Vital Signs Reviewed: Yes - Additional Comments VITAL SIGNS: Reviewed. GENERAL: Patient is a well developed and nourished M who is lying comfortable in the stretcher. Patient is not in any acute respiratory distress. HEAD AND FACE: Normocephalic EYES: PERRLA, EOMI x 2. EARS: Hearing grossly intact. MOUTH: Oropharynx within normal limits. NECK: Supple, trachea is midline, no adenopathy, no JVD, no carotid bruit. CHEST: Symmetric, no tenderness at palpation LUNGS: Clear to auscultation bilaterally. No wheezing or crackles. CVS: Regular rate and rhythm, S1 and S2 present, no murmurs or gallops appreciated. ABDOMEN: Soft, non-tender. Bowel sounds are normal. No abdominal abnormal pulsations. EXTREMITIES: Full ROM in all major joints, no edema, no cyanosis or clubbing. NEURO: Alert and oriented x 3. No acute neurological deficits. Speech is normal and follows commands. SKIN: Dry and warm UC Diagnostic Evaluation - Laboratory O2 Sat by Pulse Oximetry: 97 - EKG Cardiac Rate: NL Cardiac Rhythm: Sinus: Normal - 72 bpm, no STEMI, nml axis Respiratory Course/Dx - Course Course Of Treatment: This patient is a 57 year old M presenting to [facility] with a chief complaint of constant URI symptoms for the past 3 weeks. The patient rates the pain 0/10 in severity. Symptoms aggravated and alleviated by nothing. Patient reports cough, chest tightness and SOB for the past 3 weeks. Patient also states intermittent non-radiating chest pressure and pain in bilat wrists that began today, which are symptoms that feel similar to previous cardiac event. PMHx includes HTN, HLD, and 90% occlusion found from stress test, for which a stent was placed. An EKG reveals NSR, 72 bpm, no STEMI, nml axis. I discussed all the findings and test results with the patient. Because of his comorbidities, type of CP, and wrist pain which were similar to previous cardiac event he was recommended to go to the ED. He declined ambulance. The patients will bring him to the ED. I discussed the patients case with Dr. Ortiz who is aware of the patient. I believe patient needs further cardiac work up. The patient is hemodynamically stable, alert and oriented x3. Patient understands and agrees. All questions were answered to patient satisfaction. There were no further complaints or concerns. The patient was found to have increase BP in UC. The patient will follow up with PCP for better control of BP. - Differential Dx/Diagnosis Provider Diagnoses: Chest pain rule out acute coronary syndrome. Discharge - Discharge Plan Condition: Stable Disposition: HOME Discharge Disposition Comment: [facility], driven by Patient Education Materials: Chest Pain (ED) Referrals: Isaias Gresham MD [Primary Care Provider] - Additional Instructions: Patient will be going to the ED for further arrestment FOLLOW UP WITH YOUR PRIMARY CARE PROVIDER WITHIN ONE WEEK FOR HIGH BLOOD PRESSURE NOTED TODAY. The documentation as recorded by the Henri alejandre Nilda accurately reflects the service I personally performed and the decisions made by me, Isra Craig MD.
== END 2017-08-02 14:16 | disposition home or self-care (01) ==
LOC: UCEAST 13:45
DX: R07.9 Chest pain, unspecified (principal); I10 Essential (primary) hypertension; F17.210 Nicotine dependence, cigarettes, uncomplicated; E78.5 Hyperlipidemia, unspecified
CPT/HCPCS: 93005; 99211; G0463

== ENCOUNTER 2017-08-02 14:33 | Observation (INO) | payer BC ==
[2017-08-02] MEDS ORDERED: Nitroglycerin TAB 0.4 MG* 0.4 MG TAB SL ONE (15:13)
[2017-08-02 15:33] LABS: ABS Basophils 0.1 10^3/ul (0-0.2); ABS Eosinophils 0 10^3/ul (0-0.6); ABS Lymphocytes 1.9 10^3/ul (1.0-4.8); ABS Monocytes 0.6 10^3/ul (0-0.8); ABS Neutrophils 5.3 10^3/ul (1.5-7.7); ABS Nucleated RBC 0 10^3/ul; Eosinophil % 0.4 % (0-6); Hematocrit 43 % (42-52); Hemoglobin 14.7 g/dl (14.0-18.0); Lymphocyte % 23.6 % (25-47); Mean Corpuscular HGB Conc 34 g/dl (31-36); Mean Corpuscular Hemoglobin 31 pg (27-31); Mean Corpuscular Volume 90 fL (80-94); Mean Platelet Volume 9 um3 (7.4-10.4); Nucleated Red Blood Cells % 0; Platelet Count 239 10^3/ul (150-450); Red Blood Count 4.77 10^6/ul (4.0-5.4); Red Cell Distribution Width 14 % (10.5-15); White Blood Count 7.9 10^3/ul (3.5-10.8)
[2017-08-02 15:45] LABS: EGFR Non-African American 65.3 (>60)
--- NOTE | 2017-08-02 16:08 | RAD ---
HISTORY: Chest pain COMPARISONS: February 10, 2017 VIEWS: 1: frontal portable view of the chest at 3:30 PM FINDINGS: LINES AND TUBES: None. CARDIOMEDIASTINAL SILHOUETTE: The cardiomediastinal silhouette is normal for portable technique. PLEURA: The costophrenic angles are sharp. No pleural abnormalities are noted. LUNG PARENCHYMA: The lungs are clear. ABDOMEN: The upper abdomen is clear. There is no subphrenic gas. BONES AND SOFT TISSUES: No bone or soft tissue abnormalities are noted. IMPRESSION: NO ACTIVE CARDIOPULMONARY DISEASE.
[2017-08-02] MEDS: Iohexol 350* (CONTRAST) 500 ML MDV IV ONE ×2 (16:33→16:37)
--- NOTE | 2017-08-02 16:53 | RAD ---
HISTORY: Shortness of breath, hemoptysis, chest pain COMPARISONS: April 17, 2006 TECHNIQUE: Multiple contiguous axial CT scans of the chest were obtained after the administration of nonionic intravenous contrast, timed to the pulmonary arterial phase of contrast enhancement.. Coronal and sagittal multiplanar reformations are also submitted for review. FINDINGS: NECK AND THYROID: The lower neck and thyroid are unremarkable. CHEST WALL: There is no lower cervical, axillary, or supraclavicular lymphadenopathy by size criteria. HEART AND PERICARDIUM: The heart is unremarkable. AORTA AND PULMONARY VASCULATURE: There is no pulmonary arterial filling defect to suggest pulmonary embolism. There is no linear filling defect within the aorta to suggest aortic dissection. There is mild ectasia of ascending thoracic aorta is stable from the April 17, 2006 examination. MEDIASTINUM: There is no mediastinal lymphadenopathy by size criteria. ANGELA: There is no hilar lymphadenopathy by size criteria. AIRWAY AND ESOPHAGUS: The airway is unremarkable, without endobronchial filling defect. The esophagus is grossly normal. LUNG PARENCHYMA: There is minimal dependent atelectasis. PLEURA: No pleural abnormalities are noted. UPPER ABDOMEN: The upper abdomen is unremarkable. BONES AND SOFT TISSUES: No bone or soft tissue abnormalities are noted. OTHER: None. IMPRESSION: NO PULMONARY ARTERIAL FILLING DEFECT TO SUGGEST PULMONARY EMBOLISM.
[2017-08-02] MEDS ORDERED: Aspirin TAB* 325 MG PO ONE (17:14)
[2017-08-02] MEDS ORDERED: Aspirin Low Dose CHEW TAB* 81 MG PO ONE (17:19)
[2017-08-02] MEDS ORDERED: Aspirin Low Dose CHEW TAB* 81 MG ONE (17:19)
[2017-08-02] MEDS ORDERED: traZODone TAB* 50 MG TAB PO PRN (18:08)
[2017-08-02] MEDS ORDERED: Benzonatate CAP* 100 MG PO PRN (18:10)
[2017-08-02] MEDS ORDERED: Acetaminophen TAB* 325 MG PO PRN (18:10)
[2017-08-02] MEDS ORDERED: guaiFENesin LIQ* 100 MG/5 ML UDC PO PRN (18:10)
[2017-08-02] MEDS ORDERED: Tamsulosin CAP* 0.4 MG PO SCH (21:00)
[2017-08-02] MEDS: Ticagrelor* 90 MG TAB PO SCH (21:39)
[2017-08-02] MEDS: Heparin VIAL(*) 5000 UNITS/ML VIAL (FIVE THOUSAND) SUBCUT SCH (21:42)
--- NOTE | 2017-08-03 01:37 | HP ---
CC: Dr. Gresham; Dr. Joshua * HISTORY AND PHYSICAL: DATE OF ADMISSION: 08/02/17 PRIMARY CARE PROVIDER: Dr. Gresham. [employer] SUPERINTENDENT: Dr. Joshua ATTENDING PHYSICIAN: Jose Angel Patel MD * (dictation provided by Baylee Pena NP). CHIEF COMPLAINT: Chest discomfort, cough, wrist and ankle pain. HISTORY OF PRESENT ILLNESS: Mr. Mcdermott is a 57-year-old male with past medical history of hypertension, hyperlipidemia, and stent placement in October 2016 to the LAD who presents to the hospital today with multiple complaints. Mr. Mcdermott states that he has been feeling unwell for about 3 weeks. He has had cough. He has had nasal congestion. He has had no fever. He has felt a little bit short of breath at times. He continues to be a full pack a day smoker. He had been using Vicks VapoRub and thought he was perhaps getting a little bit better; however, today he was walking across his yard when he felt more short of breath and had discomfort in his wrists and ankles bilaterally. He states that this wrist and ankle pain was exactly the same as it was when he had an NM in early last year. For this reason, he decided to come to emergency room for evaluation. Since being here, he is now also reporting that he has had some discomfort in the center of his chest that last about 5 to 10 minutes. It seems to be associated with activity, but it has only been going on since he has been sick with this apparent viral cold. In the emergency room, Mr. Mcdermott had a troponin, which was 0 and EKG, which showed no evidence of ischemia. He went on to have a chest thorax CTA, which was negative as well as a chest x-ray. PAST MEDICAL HISTORY: 1. Hypertension. 2. Hyperlipidemia. 3. Stent in 2017 to the LAD. 4. Persistent smoking. MEDICATIONS: 1. Bupropion XL 150 to 300 mg p.o. q.a.m. 2. Aspirin 81 mg p.o. daily. 3. Atorvastatin 80 mg p.o. daily. 4. Lisinopril 2.5 mg p.o. daily. 5. Omeprazole 20 mg p.o. daily. 6. Tamsulosin 0.4 mg p.o. at bedtime. 7. Ticagrelor 90 mg p.o. b.i.d. 8. Trazodone 50 to 100 mg p.o. at bedtime p.r.n. ALLERGIES: No known drug allergies. FAMILY HISTORY: The patient reports his mother had diabetes and heart disease, father in the 70s of NM and he also had lung cancer. SOCIAL HISTORY: The patient is a continued pack a day smoker. He denies alcohol or drug use. He lives with his , who is the healthcare proxy. REVIEW OF SYSTEMS: A 14-point review of systems completed with Mr. Mcdermott and all those not mentioned above were negative. PHYSICAL EXAMINATION GENERAL: Mr. Mcdermott is sitting in the bed, he is in no acute distress. His is at the bedside. VITAL SIGNS: Temperature 99.8, pulse rate 62, respiratory rate 17, O2 saturation 94% on room air, blood pressure 110/82. LUNGS: Clear to auscultation bilaterally with no accessory muscle use and good aeration. HEART: S1, S2. No murmur, rub, or gallop and regular. ABDOMEN: Soft, nontender with bowel sounds positive x4. EXTREMITIES: No cyanosis or edema. NEUROLOGIC: He is alert. He is oriented x3. He moves all extremities equally. There is no facial asymmetry or focal weakness. Extraocular movements are intact. SKIN: Intact. LABORATORY DATA: WBC 7.9, hemoglobin 14.7, hematocrit 43, platelet count 239. Sodium 136, potassium 3.8, chloride 106, bicarbonate 23, BUN 17, creatinine 1.15 , glucose 99. Chest x-ray shows: "No active cardiopulmonary disease." Chest and thorax CTA shows: "No pulmonary arterial filling defect to suggest pulmonary embolism." ASSESSMENT: Mr. Mcdermott is a 57-year-old male with past medical history of coronary artery disease and stent placement to the LAD in October 2016 as well as persistent smoking, hypertension, hyperlipidemia who presents today to the hospital after 3 weeks of viral cold now with concern for chest discomfort and odd sensations in his wrists and ankles that he associates with his previous myocardial infarction. Our plans are for observation in the hospital for the followin. Chest discomfort with associated myocardial infarction type symptoms per the patient's estimation: The patient will have troponins x2 this evening. He will have EKG with any chest pain. If his troponins are negative, he can be discharged to home tomorrow to follow up outpatient for stress testing if needed. I suspect his symptoms are related to bronchitis; but given his significant comorbidities, he deserves observation in the hospital to rule out acute coronary symptom with troponins. 2. Hypertension: Continue home meds. 3. Hyperlipidemia: Continues home meds. 4. Smoking: The patient provided with smoking cessation counseling. The patient has no interest in quitting. 5. Code status: Full code. TIME SPENT: Approximately 60 minutes were spent on the admission of this patient, more than half the time was spent with patient at the bedside reviewing the events leading up to this hospitalization, performing physical examination, reviewing my plan of care. BAYLEE PNEA NP [id number]/CPS #: [id number] PAGE
[2017-08-03] MEDS: Heparin VIAL(*) 5000 UNITS/ML VIAL (FIVE THOUSAND) SUBCUT SCH (04:41)
[2017-08-03 08:38] VITALS: BP 113/76
[2017-08-03] MEDS: Ticagrelor* 90 MG TAB PO SCH (08:43)
[2017-08-03] MEDS ORDERED: Omeprazole CAP* 20 MG PO SCH (09:00)
[2017-08-03] MEDS ORDERED: Lisinopril TAB* 5 MG PO SCH (09:00)
[2017-08-03] MEDS ORDERED: Atorvastatin* 80 MG TAB PO SCH (09:00)
[2017-08-03] MEDS ORDERED: Aspirin Low Dose CHEW TAB* 81 MG PO SCH (09:00)
--- NOTE | 2017-08-03 09:01 | PN ---
Subjective Date of Service: 08/03/17 Interval History: Mr. Mcdermott denies complaint. Objective Active Medications: Acetaminophen (Tylenol Tab*) 650 mg PO Q6H PRN Aspirin (Aspirin Low Dose Tab*) 81 mg PO DAILY MAUREEN Atorvastatin Calcium (Lipitor*) 80 mg PO DAILY MAUREEN Benzonatate (Tessalon Cap*) 100 mg PO BID PRN Guaifenesin (Robitussin*) 5 ml PO Q4H PRN Heparin Sodium (Porcine) (Heparin Vial(*)) 5,000 units SUBCUT Q8HR MAUREEN Lisinopril (Prinivil Tab*) 2.5 mg PO DAILY MAUREEN Omeprazole (Prilosec Cap*) 20 mg PO DAILY MAUREEN Tamsulosin HCl (Flomax Cap*) 0.4 mg PO BEDTIME MAUREEN Ticagrelor (Brilinta*) 90 mg PO BID MAUREEN Trazodone HCl (Desyrel Tab*) 50 mg PO BEDTIME PRN Vital Signs: Temp Pulse Resp BP Pulse Ox 97.8 F 61 16 113/76 93 08/03/17 03:34 08/03/17 07:40 08/03/17 07:40 08/03/17 07:40 08/03/17 07:40 Oxygen Devices in Use Now: None Appearance: Male lying in bed in NAD Eyes: No Scleral Icterus Ears/Nose/Mouth/Throat: NL Teeth, Lips, Gums, Mucous Membranes Moist Neck: NL Appearance and Movements; NL JVP Respiratory: Symmetrical Chest Expansion and Respiratory Effort, Clear to Auscultation Cardiovascular: NL Sounds; No Murmurs; No JVD, No Edema Abdominal: NL Sounds; No Tenderness; No Distention Lymphatic: No Cervical Adenopathy Extremities: No Edema Skin: No Rash or Ulcers Neurological: Alert and Oriented x 3, NL Muscle Strength and Tone Nutrition: Taking PO's Result Diagrams: 08/02/17 15:18 08/02/17 15:18 Assess/Plan/Problems-Billing Assessment: Mr. Mcdermott is a 57 yo M with a PMH of CAD with stent who was admitted on with chest pain and odd pains in his wrist/ankles reminiscent of his previous MD in setting of viral illness. - Patient Problems (1) Chest pain Comment: - Resolved. - Trops and EKG negative. - Suspect symptoms related to viral bronchitis, improving. (2) Dyslipidemia Comment: - Continue atorvastatin. (3) Full code status Comment: Status and Disposition: OBV. Discharge to home.
--- NOTE | 2017-08-03 22:43 | ED ---
Sebastian Campbell Stephanie, scribed for Ha Watson MD on 08/02/17 at 1530 . HPI Chest Pain - HPI Summary HPI Summary: The pr is a 57 y/o M presenting to the ED with c/o CP that began 3 weeks ago. The CP is located in the mid-sternal region and is intermittent. Symptoms include SOB, heartburn, wrist pain, intermittent pain down UE bilaterally, migraine, coughing up blood clots and pain with breathing. The pt states he is on baby aspirin 81 mg once daily and Brilinta 20 mg 2x per day. The CP is rated as a 5 in severity. - History of Current Complaint Chief Complaint: EDChestPainROMI Time Seen by Provider: 08/02/17 15:03 Hx Obtained From: Patient Onset/Duration: Started Weeks Ago - 3, Still Present Timing: Intermittent Current Severity: Mild Pain Intensity: 3 Pain Scale Used: 0-10 Numeric Chest Pain Location: Mid Sternal Chest Pain Radiates: Yes Chest Pain Radiates To:: Arm - bilaterally Aggravating Factor(s): Exertion Alleviating Factor(s): Nothing Associated Signs and Symptoms: Positive: Chest Pain, Headaches, Shortness of Breath - heartburn, wrist pain, pain within UE bilaterally,, Other: - heartburn , wrist pain, pain with breathing, coughing up blood clots - Additional Pertinent History Primary Care Physician: [id number] - Allergy/Home Medications Allergies/Adverse Reactions: Allergies Allergy/AdvReac Type Severity Reaction Status Date / Time No Known Allergies Allergy Verified 08/02/17 13:59 PMH/Surg Hx/FS Hx/Imm Hx Endocrine/Hematology History: Denies: Hx Diabetes, Hx Thyroid Disease Cardiovascular History: Reports: Hx Hypercholesterolemia, Hx Hypertension, Other Cardiovascular Problems/Disorders - history of "blacking out" Respiratory History: Reports: Hx Pneumonia Denies: Hx Asthma, Hx Chronic Obstructive Pulmonary Disease (COPD) GI History: Reports: Hx Diverticulosis, Other GI Disorders - colitis Denies: Hx Ulcer History: Denies: Hx Dialysis, Hx Renal Disease Sensory History: Reports: Hx Contacts or Glasses, Hx Deafness, Hx Hearing Problem Denies: Hx Cataracts, Hx Eye Injury, Hx Eye Prosthesis, Hx Glaucoma, Hx Legally Blind, Hx Macular Degeneration, Hx Vision Problem, Hx Hearing Aid, Other Sensory Impairments Opthamlomology History: Reports: Hx Contacts or Glasses Denies: Hx Cataracts, Hx Eye Injury, Hx Eye Prosthesis, Hx Glaucoma, Hx Legally Blind, Hx Macular Degeneration, Hx Vision Problem, Other Sensory Impairments Neurological History: Reports: Hx Headaches, Hx Migraine - Surgical History Surgery Procedure, Year, and Place: bilateral hernia repair approx 2005. Cardiac Cath with stent 10/2016 Hx Anesthesia Reactions: No Infectious Disease History: No Infectious Disease History: Denies: Hx Hepatitis, Hx Human Immunodeficiency Virus (HIV), History Other Infectious Disease, Traveled Outside the [place] in Last 30 Days - Family History Known Family History: Positive: Cardiac Disease, Diabetes, Other - CVA. Negative history of blood clots - Social History Occupation: Employed Full-time Lives: With Family Alcohol Use: None Alcohol Amount: 2 Substance Use Type: Reports: None Smoking Status (MU): Heavy Every Day Tobacco Smoker Type: Cigarettes Amount Used/How Often: 1-2cig/day Review of Systems Negative: Fever, Chills Negative: Erythema Negative: Sore Throat Positive: Chest Pain, Other - heartburn Positive: Shortness Of Breath, Cough - coughing up blood, Other - pain with breathing Negative: Abdominal Pain, Vomiting, Nausea Negative: dysuria, hematuria Positive: Other - wrist pain, intermittent pain down UE bilaterally. Negative: Myalgia, Edema Negative: Rash Positive: Headache All Other Systems Reviewed And Are Negative: Yes Physical Exam - Summary Physical Exam Summary: Constitutional: Well-developed, Well-nourished, Alert. (-) Distressed Skin: Warm, Dry HENT: Normocephalic; Atraumatic Eyes: Conjunctiva normal Neck: Musculoskeletal ROM normal neck. (-) JVD, (-) Stridor, (-) Tracheal deviation Cardio: Rhythm regular, rate normal, Heart sounds normal; Intact distal pulses; The pedal pulses are 2+ and symmetric. Radial pulses are 2+ and symmetric. (-) Murmur Pulmonary/Chest wall: Effort normal. (-) Respiratory distress, (-) Wheezes, (-) Rales Abd: Soft, (-) Tenderness, (-) Distension, (-) Guarding, (-) Rebound Musculoskeletal: (-) Edema Lymph: (-) Cervical adenopathy Neuro: Alert, Oriented x3 Psych: Mood and affect Normal Triage Information Reviewed: Yes Vital Signs On Initial Exam: Initial Vitals Temp Pulse Resp BP Pulse Ox 98.8 F 70 18 135/87 98 08/02/17 14:35 08/02/17 14:35 08/02/17 14:35 08/02/17 14:35 08/02/17 14:35 Vital Signs Reviewed: Yes Diagnostics - Vital Signs Vital Signs Temp Pulse Resp BP Pulse Ox 08/02/17 14:35 98.8 F 70 18 135/87 98 - Laboratory Result Diagrams: 08/02/17 15:18 08/02/17 15:18 Lab Statement: Any lab studies that have been ordered have been reviewed, and results considered in the medical decision making process. - Radiology CXR Xray Interpretation: No Acute Changes Radiology Interpretation Completed By: Radiologist - NO ACTIVE CARDIOPULMONARY DISEASE. - CT Chest/Thorax CTA CT Interpretation: No Acute Changes CT Interpretation Completed By: Radiologist - NO PULMONARY ARTERIAL FILLING DEFECT TO SUGGEST PULMONARY EMBOLISM. - EKG 14:37 Cardiac Rate: NL EKG Rhythm: Sinus Rhythm - 70 BPM EKG Interpretation: no STEMI Re-Evaluation - Re-Evaluation First Eval Re-Evaluation Time: 16:38 Change: Improved - Pt states improvement of CP after taking nitroglycerin. Chest Pain Course/Dx - Course Course Of Treatment: Symptoms are like when he had his last [place]: exertional. His CP was completely relieved with nitroglycerin. - Diagnoses Provider Diagnoses: Coronary artery disease, Chest pain, unspecified - Provider Notifications Discussed Care Of Patient With: Ama Castelan - Dr. Castelan suggests admission. Time Discussed With Above Provider: 17:00 Discharge - Discharge Plan Condition: Stable Disposition: ADMITTED TO [facility] Referrals: Isaias Gresham MD [Primary Care Provider] - The documentation as recorded by the Sebastian alejandre Stephanie accurately reflects the service I personally performed and the decisions made by , Ha Watson MD.
--- NOTE | 2017-08-04 08:19 | DS ---
CC: Dr. Gresham * [facility] MEDICINE DISCHARGE SUMMARY: DATE OF ADMISSION: 08/02/17 DATE OF DISCHARGE: 08/03/17 PRIMARY CARE PHYSICIAN: Dr. Gresham. ATTENDING PHYSICIAN: Dr. Jose Angel Patel * (dictation provided by Baylee Pena NP). PRIMARY DIAGNOSES: 1. Chest pain, atypical. 2. Viral illness. SECONDARY DIAGNOSES: 1. Hypertension. 2. Hyperlipidemia. 3. Stent placement in 2017 to the LAD. 4. Persistent smoking. MEDICATIONS AT THE TIME OF DISCHARGE: 1. Bupropion XL 300 mg p.o. q.a.m. 2. Aspirin 81 mg p.o. daily. 3. Atorvastatin 80 mg p.o. daily. 4. Lisinopril 2.5 mg p.o. daily. 5. Omeprazole 20 mg p.o. daily. 6. Tamsulosin 0.4 mg p.o. at bedtime. 7. Ticagrelor 90 mg p.o. b.i.d. 8. Trazodone 50-100 mg p.o. at bedtime p.r.n. HOSPITAL COURSE: Mr. Mcdermott is a 57-year-old male with past medical history of coronary artery disease and stent placement in October 2016, who presented to the hospital on 08/02/17 with concern for chest discomfort and odd sensations of discomfort in his ankles and wrist reminiscent of his previous IN. Please see the dictated H and P by myself for complete details. In brief, the patient reported he had had about a 3-week history of an upper respiratory viral illness with cough and nasal congestion and generally feeling unwell. He reported feeling these odd sensations of chest discomfort and ankle and wrist discomfort and therefore presented to the emergency room as he was concerned that he was having another IN. In the emergency room, Mr. Mcdermott had troponin which was 0 and EKG which showed no evidence of ischemia. Based on his positive risk factors and the story concerning for a similarity to previous IN, he was observed in the hospital overnight. He had 2 further troponins drawn, which were negative. Mr. Mcdermott states he is feeling better this morning. He has no further discomfort in his wrist or ankles. He has no chest discomfort. He feels like his cough is somewhat better. Mr. Mcdermott is medically stable for discharge to home. I think his symptoms are all related to his ongoing viral infection. He has no evidence of a bacterial component to this and no indication for antibiotics. I have encouraged him to return to the emergency room should he have fever or any other concerning symptoms. He has also been strongly encouraged to stop smoking. DISPOSITION: Home. DIET: Low fat, low salt. ACTIVITY: As tolerated. FOLLOWUP PLANS: Please follow up with Dr. Gresham regarding this hospitalization. I asked the patient to call on Friday for an appointment. TIME SPENT: Approximately 60 minutes were spent on the discharge of this patient, more than half the time spent with the patient at the bedside reviewing the events leading up to this hospitalization, performing the physical examination, and reviewing my plan of care. BAYLEE PENA NP [id number]/CPS #: [id number] MTDD
== END 2017-08-03 10:26 | disposition home or self-care (01) ==
LOC: ED 14:33 → MEDTELE 18:07
PROVIDERS: ADMIT Internal Medicine; ATTEND Internal Medicine
DX: R07.89 Other chest pain (principal); B34.9 Viral infection, unspecified; E78.5 Hyperlipidemia, unspecified; I25.10 Atherosclerotic heart disease of native coronary artery without angina pectoris; R51 Headache; R06.02 Shortness of breath; M25.539 Pain in unspecified wrist; R05 Cough; Z95.5 Presence of coronary angioplasty implant and graft; F17.210 Nicotine dependence, cigarettes, uncomplicated
CPT/HCPCS: 36415; 71045; 71275; 80053; 83605; 84484; 85025; 93005; 99283; A9270-GY; G0378; J1644; Q9967